=== PATIENT | female | born 1970 | race Caucasian/White ===

== ENCOUNTER 2017-07-20 07:24 | Outpatient (RCR) | payer OTHER, SELFPAY ==
--- NOTE | 2017-09-13 14:36 | HP.PTDCNRP_ITS ---
HP - Discharge Summary (1) - Patient Information CRISTINA SPRING was seen in my office for initial evaluation on 07/20/17. The following Plan of Care was established for this patient: Initial Frequency: 2x /Week Initial Duration: 4 Weeks - Anticipated Interventions Patient/Client Instruction: Educate patient on: Benefits of Fitness Program For the Purpose of:: To increase tolerance to activity/condition/position Therapeutic Exercise to Include: Strength training, Endurance training, Body mechanics, Postural training, Passive ROM, Active ROM, Scapular Strength/ Stabilization For the Purpose of:: To improve muscle performance and motor function TENS: Yes Cryotherapy (ice pack, ice massage): Yes Thermo therapy (hot pack): Yes Ultrasound (thermal/non thermal): Yes For the Purpose of:: To decrease pain This patient was last seen in our office . Pertinent comments regarding their Physical therapy will appear below: Patient has not attended physical therapy in over 4 weeks- appropriate to be d/ c at this time. At this point I will be discontinuing this patient from physical therapy. I would be happy to see this patient again in the future if found appropriate by the physician. Thank you! Jo Hutchinson
== END 2017-07-20 19:00 | disposition home or self-care (01) ==
LOC: PT 07:24
PROVIDERS: Family Provider Family Medicine; PCP Family Medicine; Visit Provider Physician Assistant
DX: S16.1XXD Strain of muscle, fascia and tendon at neck level, subsequent encounter (principal); S46.819D Strain of other muscles, fascia and tendons at shoulder and upper arm level, unspecified arm, subsequent encounter; S29.011D Strain of muscle and tendon of front wall of thorax, subsequent encounter
CPT/HCPCS: 97014; 97162; G0283

== ENCOUNTER → 2017-07-23 17:50 | Outpatient (CLI) | payer OTHER, SELFPAY ==
[2017-07-23 17:52] LABS: Bacteria 0 SEEN /hpf (None Seen); Mucous, Urine 0 SEEN /hpf (<or=2+); White Blood Cells 0 SEEN /hpf (0-5)
[2017-07-23 18:27] LABS: Color, Urine Amber (Yellow); Glucose, Dipstick Normal (Normal); Ketone-Dipstick 5 mg/dl (Negative); Leukocyte Esterase-Dipstick 500 /ul (Negative); Nitrite-Dipstick Negative (Negative); Occult Blood-Urine 250 /ul (Negative); Protein-Dipstick 30 mg/dl (Negative); Specific Gravity, Urine 1.015 (1.002-1.030); Urine Bilirubin Dipstick Negative (Negative); Urine Clarity Cloudy (Clear); Urine Urobilinogen Normal (Normal); Urine pH 6.5 (5.0 - 8.0)
[2017-07-23 19:06] LABS: Red Blood Cells-Urine > 100 SEEN /hpf (0-5); Squamous Epithelial Cells - UA > 100 SEEN /hpf (5-10)
== END ==
PROVIDERS: Family Provider Family Medicine; PCP Family Medicine; Visit Provider Physician Assistant Surgical
DX: N30.01 Acute cystitis with hematuria (principal)
CPT/HCPCS: 81001; 87086; 87088

== ENCOUNTER → 2017-08-12 12:29 | Outpatient (CLI) | payer OTHER, SELFPAY ==
--- NOTE | 2017-08-12 12:32 | CT_ITS ---
STUDY: CT SOFT TISSUE NECK WITH CONTRAST REASON FOR EXAM: Female, 47 years old. Left-sided neck mass. RADIATION DOSAGE (If Supplied By Facility): CTDIvol = ( 22.58 ) mGy, DLP = ( 671.13 ) mGycm TECHNIQUE: The patient was scanned in a multi-detector CT scanner. High resolution transaxial imaging was performed following intravenous administration of 75 ml of Isovue 300 contrast material. Sagittal and coronal images were reconstructed. Individualized dose optimization techniques were used for this CT. COMPARISON: Comparison is made with prior examination dated July 22, 2009. FINDINGS: Normal bilateral parotid glands. Normal bilateral nitroglycerin separator operator spaces. Normal bilateral parapharyngeal spaces. Normal bilateral carotid spaces. Normal bilateral sublingual and submandibular glands and spaces. Normal visualized nasopharynx. Normal retropharyngeal space. Normal perivertebral space. Normal visualized bilateral faucial tonsils. The visualized tongue, tongue base and oropharynx are normal. The visualized cervical lymph nodes (levels I-) are within normal size limits, and maintain normal morphology. There is no demonstrated solid or cystic mass lesion. There is no abnormal contrast enhancement. Normal epiglottis, bilateral vallecula and hypopharynx. The pre-epiglottic and paraglottic adipose spaces are normal. Normal visualized bilateral piriform sinuses, aryepiglottic folds, vocal cords, and arytenoid-cricoid articulations. Normal subglottic trachea. Stable appearance of the mildly enlarged thyroid with small hypodense nodules within it. Normal visualized pulmonary apices. Normal visualized paranasal sinuses. Normal visualized cervical spine. CT/Soft Tissue Neck WITH Contrast IMPRESSION: Mildly enlarged thyroid gland with hypodense nodules within. Electronically Signed: Gunnar Morrissey MD at 15:39 EST Tel [phone], Service support ,
== END ==
PROVIDERS: Family Provider Family Medicine; PCP Family Medicine; Visit Provider Family Medicine
DX: R22.1 Localized swelling, mass and lump, neck (principal)
CPT/HCPCS: 70491; Q9967

== ENCOUNTER 2017-10-29 11:00 | Outpatient (RCR) | payer OTHER, SELFPAY ==
--- NOTE | 2017-10-25 13:39 | HP.OTEVAL_ITS ---
Patient's Visit Information CRISTINA SPRING is a 47 year old F, referred to Occupational Therapy by SASHA KELLEY CNP, with a diagnosis of right wrist pain acute. 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 pt would like her pain to decrease so she can return to PLOF. - Pain right wrist 0 Pain Intensity Range: 5, 8 - ROM Wrist: right 60/40 left 70/70 - Strength Computer Numerical Control Programmer: right 35# left 75# Lateral Pinch: right 4# left 12# Tripod Pinch: right 8# left 14# - Sensation Sensation Comments: pt gets positive nerve symptoms with palpation in forearm - Special Tests Median Nerve Compression Test: right forearm positive WHAT Test: negative - DASH-Disabilities of Arm, Shoulder& Hand DASH Sum: 76 - Goals Goal:: pt will demo a increase in right machine stoppage frequency checker strength to 70# or greater to increase ind. with BADls and IADLS by D/C Goal:: pt will demo a increase in total wrist ROM by 20 degress to increase pt ind. with BADLS and IADLS by D/C Goal:: pt will report right wrist pain no greater than 1/10 with use of left hand with BADLs and IADLs by d/c - Rehabilitation General Assessment: pt demo with very painful flexor tensons and symptoms of tingling/numbness increase with palpation of flexors- pt is limited with her functional ROM and strength- pain is also limiting her ind. with BADLs and IADLs. pt would benefit from skilled OT services. Rehabilitation Potential: Good - Anticipated Interventions Anticipated Interventions: A/AAROM/PROM, Triggerpoint Release, Modalities, Orthoses, Ergonomic Education - Visit Plan Frequency: 2-3x /Week Duration: 4 Weeks TEXT: Thank you for the opportunity to evaluate your patient. For Medicare and Medicare HMO plans, please review the plan of care and approve it. It will need to be FAXED BACK to us at [phone] for Medicare purposes. Please let me know if there are questions or concerns regarding this plan of care. Physician Signature: Date:
--- NOTE | 2018-01-31 15:49 | HP.OT.NRP ---
HP - Discharge Summary - Patient Information CRISTINA SPRING was seen in my office for initial evaluation on 10/12/17. The following Plan of Care was established for this patient: Initial Frequency: 2-3x /Week Initial Duration: 4 Weeks Plan: Tape - Anticipated Interventions Anticipated Interventions: A/AAROM/PROM, Triggerpoint Release, Modalities, Orthoses, Ergonomic Education This patient was last seen in our office 10/29/17. Pertinent comments regarding their Occupational therapy will appear below: Pt was progressing but noted the ability to increase CTS with compression to bilateral foreams. pt continues to have wrist pain. pt last seen on 10-29-17. due to laps in tx time pt d/c at this time. At this point I will be discontinuing this patient from occupational therapy. I would be happy to see this patient again in the future if found appropriate by the physician. Thank you! Nancy Borges, OTR/L, CHT
== END 2017-10-29 19:00 | disposition home or self-care (01) ==
LOC: OT 11:00
PROVIDERS: Family Provider Family Medicine; PCP Family Medicine
DX: M25.531 Pain in right wrist (principal)
CPT/HCPCS: 97035; 97140; 97166; 97530

== ENCOUNTER → 2018-01-10 09:47 | Outpatient (CLI) | payer OTHER, SELFPAY ==
--- NOTE | 2018-01-10 09:48 | RAD_ITS ---
STUDY: X-RAY - LEFT KNEE REASON FOR EXAM: Female, 47 years old. knee pain x one year after hyperextending TECHNIQUE: 4 view(s) of the knee. COMPARISON: None. FINDINGS: Normal visualized distal femur. Normal visualized proximal tibia and fibula. Normal proximal tibiofibular articulation. Normal medial femorotibial compartment. Normal lateral femorotibial compartment. Normal patellofemoral articulation. The soft tissue structures are unremarkable. RAD/Knee 4 or More Views IMPRESSION: Normal x-ray examination of the knee. Electronically Signed: Sasha Carter MD at 11:02 EDT , Service support ,
== END ==
PROVIDERS: Family Provider Family Medicine; PCP Family Medicine; Visit Provider Physician Assistant
DX: M25.562 Pain in left knee (principal)
CPT/HCPCS: 73564

== ENCOUNTER → 2018-01-24 10:06 | Outpatient (CLI) | payer OTHER, SELFPAY | PROVIDERS: Family Provider Family Medicine; PCP Family Medicine; Visit Provider Physician Assistant | DX: S83.282A Other tear of lateral meniscus, current injury, left knee, initial encounter (principal); X58.XXXA Exposure to other specified factors, initial encounter; Y93.9 Activity, unspecified; Y92.9 Unspecified place or not applicable; Y99.9 Unspecified external cause status | CPT/HCPCS: 73721 ==

== ENCOUNTER → 2018-03-14 09:10 | Outpatient (CLI) | payer OTHER, SELFPAY ==
--- NOTE | 2018-03-14 09:12 | CT_ITS ---
STUDY: CT ABDOMEN AND PELVIS WITH AND WITHOUT CONTRAST REASON FOR EXAM: Female, 47 years old. Microscopic hematuria for 2 months. RADIATION DOSAGE (If Supplied By Facility): CTDIvol = ( 19.44 ) mGy, DLP = ( 1769.36 ) mGycm TECHNIQUE: Transaxial images were obtained from the dome of the diaphragm to the symphysis pubis without oral contrast. 100 ml of Isovue 300 contrast was administered. Sagittal and coronal images were reconstructed. Individualized dose optimization techniques were used for this CT. COMPARISON: Prior comparable comparison studies are not available for review at this time. FINDINGS: The visualized lung bases are unremarkable. The visualized portions of the heart are within normal limits. There is hepatomegaly with diffuse hepatic enlargement. Maximum cephalocaudal dimension of the liver is approximately 25.3 cm. Normal gallbladder and extrahepatic biliary system. There is a cystic lesion within the anterior aspect of the spleen measuring approximately 2.7 x 2.1 x 2 cm in size. There are some associated calcifications adjacent to the capsule of this lesion. The spleen otherwise has a normal appearance. C7 splenic hilum. Normal pancreas. Normal bilateral adrenal glands. Normal right kidney. Normal left kidney. Normal visualized stomach. There is no evidence for dilated bowel, ascites or pneumoperitoneum. The small bowel has a grossly normal appearance. The descending colon is nondistended which gives the appearance of thickened combs. Stool is visible within the right colon and transverse colon. The appendix is visualized and appears normal. Abdominal aorta is slightly tortuous with minimal atherosclerotic calcification. Normal inferior vena cava. Normal retroperitoneum. Normal urinary bladder. Normal visualized uterus. There is diastases recti. Normal osseous structures. CT/CT Abd/Pelvis W/WO Contrast IMPRESSION: 1. Hepatomegaly. 2. Splenic cystic lesion. 3. Varices are present suggesting some component of portal hypertension. Electronically Signed: Hannah Abreu MD at 12:18 EDT , Service support ,
== END ==
PROVIDERS: Family Provider Family Medicine; PCP Family Medicine; Referring Provider Urology; Visit Provider Urology
DX: R31.9 Hematuria, unspecified (principal)
CPT/HCPCS: 74178; Q9967

== ENCOUNTER → 2018-08-24 20:40 | Outpatient (CLI) | payer OTHER, SELFPAY | PROVIDERS: Family Provider Family Medicine; PCP Family Medicine; Visit Provider Psychiatry & Neurology Psychiatry | DX: G47.33 Obstructive sleep apnea (adult) (pediatric) (principal) | CPT/HCPCS: 95810 ==

== ENCOUNTER → 2018-09-01 14:07 | Outpatient (CLI) | payer OTHER, SELFPAY ==
[2018-09-01 08:33] VITALS: BMI 35.5
== END ==
PROVIDERS: Family Provider Family Medicine; PCP Family Medicine; Referring Provider Nurse Practitioner Family; Visit Provider Nurse Practitioner Family
DX: R30.0 Dysuria (principal); R35.0 Frequency of micturition
CPT/HCPCS: 87086; 87088; 87186

== ENCOUNTER 2018-11-01 08:00 | Outpatient (RCR) | payer OTHER, SELFPAY ==
[2018-09-01 08:33] VITALS: BMI 35.5
--- NOTE | 2018-10-04 11:59 | HP.OTEVAL_ITS ---
Patient's Visit Information CRISTINA SPRING is a 48 year old F, referred to Occupational Therapy by Devante Linn III, MD, with a diagnosis of bilateral hand/wrist strain. Date of Evaluation: 10/03/18 Occupational Therapist: Nancy Borges, CALLIE/Wilber, CHT - Subjective Subjective: This 48 year old female arrives to OT [facility] with dx of bilateral hand/wrist strains. 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 Pt states she works two hours on wednesday, three on wed, and 4 Wednesday. Pt does not use any tools while performing her job. 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 pt is mostly elbows down on bilateral UE. - Pain bilateral hands 3 Pain Intensity Range: 3, 5 - ROM Elbow: right 0/110 left 0/120 this is pain free ROM,pt demo better ROM but painful Forearm: supination right 45 left 60 pronation Wrist: right 55/60 left 75/45 ROM Comments: pt demo all digit ROM WFL. pain with right MCPJ ROM and use - Strength Dual Rate Dealer: right 20# left 40# Lateral Pinch: right 14# left 12# Tripod Pinch: rigth 12# with pain left 14# - Edema PIP: right MF 5.7 left 5.5 - Special Tests Median Nerve Compression Test: positive - Goals Goal:: PT will demo an increase in chemical milling processor strength by 20# to increase independent with basic occupations of daily living to return pt to OF by D/C. Pt will demo an increase in lateral and tripod pinch by 2# to increase pts independent with opening baggies, containers at PLOF by D/C. Goal:: pt will demo full ROM of bilateral foream sup/pron to increase pts ind with ADLs and IADLS by d/c Goal:: pt will report with use of bilateral UE and hands for IADLs and ADls her pain will be no greater than 1/10 by d/c. - Rehabilitation General Assessment: pt presents with pain with palpation of bilateral elbows, wrist and hands- pain with resistive testing, and decreased ROM of elbow, forearms and wrist. THe above limit pts with functional use of bilateral hands for home mtg and job tasks. pt would benefit from skilled OT services2-3x week for 4 weeks to decrease pain, improve pts ROM and return pts functional strenght to return to her PLOF with ADLs, IADls and work tasks. PT demo understanding and agrees to POC Rehabilitation Potential: Good - Anticipated Interventions Anticipated Interventions: A/AAROM/PROM, Strengthening, Triggerpoint Release, Modalities, Orthoses, Joint Protection/Energy Conservation, Ergonomic Education - Visit Plan Frequency: 2-3x /Week Duration: 4 Weeks TEXT: Thank you for the opportunity to evaluate your patient. For Medicare and Medicare HMO plans, please review the plan of care and approve it. It will need to be FAXED BACK to us at [phone] for Medicare purposes. Please let me know if there are questions or concerns regarding this plan of care. Physician Signature: Date:
--- NOTE | 2019-03-08 10:34 | HP.OT.NRP ---
HP - Discharge Summary - Patient Information CRISTINA SPRING was seen in my office for initial evaluation on 10/03/18. The following Plan of Care was established for this patient: Initial Frequency: 2-3x /Week Initial Duration: 4 Weeks Plan: pt to see - Anticipated Interventions Anticipated Interventions: A/AAROM/PROM, Strengthening, Triggerpoint Release, Modalities, Orthoses, Joint Protection/Energy Conservation, Ergonomic Education This patient was last seen in our office 11/01/18. Pertinent comments regarding their Occupational therapy will appear below: Pt was seen for 8 visits in OT. therapist ed. pt on work ergo, median nerve glides, trigger point release and use of k-tape. pts symptoms cont. to come and go with no improved results- therapist rec'd pt to return to due to limited progress. pt d/c at this time. At this point I will be discontinuing this patient from occupational therapy. I would be happy to see this patient again in the future if found appropriate by the physician. Thank you! Nancy Borges, OTR/L, CHT
== END 2018-11-01 19:00 | disposition home or self-care (01) ==
LOC: OT 08:00
PROVIDERS: Family Provider Family Medicine; PCP Family Medicine; Referring Provider Family Medicine; Visit Provider Family Medicine
DX: S66.91 Strain of unspecified muscle, fascia and tendon at wrist and hand level (principal)
CPT/HCPCS: 97035; 97110; 97140; 97166; 97530

== ENCOUNTER 2019-10-17 10:00 | Outpatient (RCR) | payer OTHER, SELFPAY ==
[2018-10-13 08:18] VITALS: BMI 37.4
--- NOTE | 2019-09-26 12:54 | HP.PTEVAL_ITS ---
Patient's Visit Information CRISTINA SPRING is a 49 year old F referred to Physical Therapy by Devante Linn III, MD with a diagnosis of R sided throacic pain. Date of Evaluation: 09/26/19 Physical Therapist: Solo David DPT - Visit Plan Frequency: 2x /Week Duration: 4-6 Weeks Plan: Start with US to R side of T6-T9 (paraspinal region), PA pressure III/IV as tolerated. Seated trunk extension of thoracic spine--> to over pressures. - Subjective Subjective: Pt. is here today for her initial evaluation with diagnosis of R sided thoracic pain. 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 No mech of injury. Pt. thinks that she just woke up with the symtoms. Pt. has had this before, knocked out with flexir and prednisone. No weakness noted. No N/T. Increases symptoms: deep breathing, getting up out of bed, twisting, and getting up to standing, bend and lifting. Decreases symptoms: heat, advil. Mild relief. Pt. is hopeful to reduce symptoms in order to get back to work and recreational activities without limiations. - Pain R side of thoracic spine Pain Intensity (Out of 10): 3 Pain Intensity Range: 3, 7 - Objective POSTURE: Pt. has slight increased in thoracic kyphosis and rounded shoulders. Pt. is able to correct without issues. PALPATION: Pt. is very tender at T6-T9 on right side. Pt. has hypomobility througout transerve process and ribs in this region, R sided only. Hypombility noted with spring testing to spinous process as well. NEURO: normal throughout UE/LEs, normal sensation. ROM: Lumbar spine: flexion min loss increase NW, extnsion nil loss NE, rotaton min loss bilat increase NW. Thoracic spine: flexion min loss NE, extension min/mod loss increase NW, rotation R mod/max loss increase NW, rotation L min loss mild increase NW. MMT: normal throughout UE/LEs. GAIT: PT. has normal gait pattern no issues. - Special Tests Thoracic Sitting: Flexion - Mechanical Response: No effect Thoracic Sitting: Flexion - Symptoms During Testing: Increases Thoracic Sitting: Flexion - Symptoms After Testing: No worse Thoracic Sitting: Extension - Mechanical Response: No effect Thoracic Sitting: Extension - Symptoms During Testing: Increases Thoracic Sitting: Extension - Symptoms After Testing: No worse Comments:: limited motion Thoracic Sitting: Right rotation - Mechanical Response: No effect Thoracic Sitting: Right Rotation - Symptoms During Testing: Increases Thoracic Sitting: Right Rotation - Symptoms After Testing: No worse Comments:: Very limited ROM Thoracic Sitting: Left rotation - Mechanical Response: No effect Thoracic Sitting: Left Rotation - Symptoms During Testing: Abolishes Comments:: slight ROM loss - Goals Goal 1:: LTG: Pt. to be I with HEP. Goal Time Frame: 4-6 Weeks Goal 2:: STG: Pt. to sleep throughout the night without increase in symptoms. Goal Time Frame: 2-4 Weeks Goal 3:: STG: Pt. to get out of bed, up and down from chair without increase in symptoms. Goal Time Frame: 2-4 Weeks Goal 4:: STG: Pt. to deep breath without increase in symptoms. Goal Time Frame: 2-4 Weeks Goal 5:: LTG: Pt. to have full thoracic ROM without increase in symptoms. Goal Time Frame: 4-6 Weeks Goal 6:: LTG: Pt. to resume all work and household activities without increase in symptoms. Goal Time Frame: 4-6 Weeks - Rehabilitation Potential Physical Therapy Diagnosis: Pt. has signs and symptoms consistent with R sided thoracic pain. Pt. has no signs of shingles. Pt. has limited ROM of thoracic spine, worst with R side bending and R rotation. She also has some symptoms with deep breathing. Pt. had positive results initially with PA pressure and with self thoracic extension exercises. Pt. would benefit from PT to increase ROM and decrease symptoms. Rehabilitation Potential: Excellent - Anticipated Interventions Patient/Client Instruction: Educate patient on: Condition, Plan of Care, Risk Factors, Benefits of Fitness Program For the Purpose of:: To foster healthy habits, To improve decision making, To facilitate caregiver knowledge, To improve self management, To prevent re- injury, To improve ability to perform tasks related to life management, To improve tolerance to ADL's Therapeutic Exercise to Include: Strength training, Power training, Postural training, Flexibilty training, Passive ROM, Active ROM, Brodie Exercises, Scapular Strength/Stabilization For the Purpose of:: To decrease pain, To decrease swelling/inflammation, To increase ROM, To improve nutrient delivery to tissue, To increase oxygenation perfusion, To improve muscle performance and motor function, To improve health of tissue, To decrease soft tissue restriction, To increase flexibility/ROM Manual Therapy Techniques to Include: Mobilization, Functional dry needling, Soft tissue mobilization For the Purpose of:: To decrease pain, To decrease swelling/inflammation, To increase ROM, To improve nutrient delivery to tissue, To increase oxygenation perfusion IF ES: Yes Cryotherapy (ice pack, ice massage): Yes Thermo therapy (hot pack): Yes Ultrasound (thermal/non thermal): Yes For the Purpose of:: To decrease pain, To decrease swelling/inflammation, To in crease ROM, To improve nutrient delivery to tissue, To increase oxygenation perfusion, To improve muscle performance and motor function Thank you for the opportunity to evaluate your patient. For Medicare and Medicare HMO plans, please review the plan of care and approve it. It will need to be FAXED BACK to us at [phone] for Medicare purposes. For Medicare only, by signing this I certify the plan of care. Please let me know if there are questions or concerns regarding this plan of care. Physician Signature: D ate:
--- NOTE | 2019-10-17 10:31 | HP.PTREVAL_ITS ---
Dr. Devante Linn III, MD, It has been my pleasure to treat CRISTINA SPRING over the last 5 visits for R sided throacic pain. Please see the progress note below for an update on the physical therapy plan of care! Subjective: Pt. reports I am doing better, but I feel like I am always on the cusp of irritating it.' Pt. reports being HEP complaint. Objective/Function: Pt. did well with all PT this date. ROM: THORACIC SPINE: Pt. has full motion, stretch felt with extension. Decrease in symptoms with extension. Pt. has no pain with deep breathing. Pt. felt stretch of her lats, rhomboids and mid trap. Pt.given stretches for HEP (pt. consents). I also gave her strengthening of rhomboids and mid trap for HEP. (purple band vended this date). Pt. to focus on extension postural strengthening and ROM into extension for home. Pt. consents. Plan Plan: Pt. given HEP to work on at home. Pt. desires to go this route and follow back up with Pt if needed. I will keep her case open to allow for return if needed. If she does not return with in 3-4 weeks I will DC back to physician. Goals Goal 1:: LTG: Pt. to be I with HEP. Goal Time Frame: 4-6 Weeks Goal Progress: Goal Met Goal 2:: STG: Pt. to sleep throughout the night without increase in symptoms. Goal Time Frame: 2-4 Weeks Goal Progress: Goal Met Goal 3:: STG: Pt. to get out of bed, up and down from chair without increase in symptoms. Goal Time Frame: 2-4 Weeks Goal Progress: Goal Met Goal 4:: STG: Pt. to deep breath without increase in symptoms. Goal Time Frame: 2-4 Weeks Goal Progress: Goal Met Goal 5:: LTG: Pt. to have full thoracic ROM without increase in symptoms. Goal Time Frame: 4-6 Weeks Goal Progress: Goal Met Goal 6:: LTG: Pt. to resume all work and household activities without increase in symptoms. Goal Time Frame: 4-6 Weeks Goal Progress: Progressing Anticipated Interventions Patient/Client Instruction: Educate patient on: Condition, Plan of Care, Risk Factors, Benefits of Fitness Program For the Purpose of:: To foster healthy habits, To improve decision making, To facilitate caregiver knowledge, To improve self management, To prevent re- injury, To improve ability to perform tasks related to life management, To improve tolerance to ADL's Therapeutic Exercise to Include: Strength training, Power training, Postural training, Flexibilty training, Passive ROM, Active ROM, Brodie Exercises, Scapular Strength/Stabilization For the Purpose of:: To decrease pain, To decrease swelling/inflammation, To increase ROM, To improve nutrient delivery to tissue, To increase oxygenation perfusion, To improve muscle performance and motor function, To improve health of tissue, To decrease soft tissue restriction, To increase flexibility/ROM Manual Therapy Techniques to Include: Mobilization, Functional dry needling, Soft tissue mobilization For the Purpose of:: To decrease pain, To decrease swelling/inflammation, To increase ROM, To improve nutrient delivery to tissue, To increase oxygenation perfusion IF ES: Yes Cryotherapy (ice pack, ice massage): Yes Thermo therapy (hot pack): Yes Ultrasound (thermal/non thermal): Yes For the Purpose of:: To decrease pain, To decrease swelling/inflammation, To increase ROM, To improve nutrient delivery to tissue, To increase oxygenation perfusion, To improve muscle performance and motor function Please do not hesitate to contact me at [phone] by phone or if you have questions or concerns regarding this new plan of care! Sincerely, Solo David DPT
--- NOTE | 2020-03-25 07:47 | HP.PTDCNRP_ITS ---
CRISTINA SPRING was seen in my office for initial evaluation on 09/26/19. The following Plan of Care was established for this patient: Initial Frequency: 2x /Week Initial Duration: 4-6 Weeks Patient/Client Instruction: Educate patient on: Condition, Plan of Care, Risk Factors, Benefits of Fitness Program For the Purpose of:: To foster healthy habits, To improve decision making, To facilitate caregiver knowledge, To improve self management, To prevent re- injury, To improve ability to perform tasks related to life management, To improve tolerance to ADL's Therapeutic Exercise to Include: Strength training, Power training, Postural training, Flexibilty training, Passive ROM, Active ROM, Brodie Exercises, Scapular Strength/Stabilization For the Purpose of:: To decrease pain, To decrease swelling/inflammation, To increase ROM, To improve nutrient delivery to tissue, To increase oxygenation perfusion, To improve muscle performance and motor function, To improve health of tissue, To decrease soft tissue restriction, To increase flexibility/ROM Manual Therapy Techniques to Include: Mobilization, Functional dry needling, Soft tissue mobilization For the Purpose of:: To decrease pain, To decrease swelling/inflammation, To increase ROM, To improve nutrient delivery to tissue, To increase oxygenation perfusion IF ES: Yes Cryotherapy (ice pack, ice massage): Yes Thermo therapy (hot pack): Yes Ultrasound (thermal/non thermal): Yes For the Purpose of:: To decrease pain, To decrease swelling/inflammation, To increase ROM, To improve nutrient delivery to tissue, To increase oxygenation perfusion, To improve muscle performance and motor function This patient was last seen in our office 10/17/19. Pertinent comments regarding their Physical therapy will appear below: Pt. was seen in PT for her R sided thoracic pain. Pt. at our last visit was doing much better and was to trial exercsies on her own. Pt. has not been seen in several months and will be DC from PT at this point in time. At this point I will be discontinuing this patient from physical therapy. I would be happy to see this patient again in the future if found appropriate by the physician. Thank you! Solo David, SHASTAT
== END 2019-10-17 19:00 | disposition home or self-care (01) ==
LOC: PT 10:00
PROVIDERS: PCP Family Medicine; Referring Provider Family Medicine; Visit Provider Family Medicine
DX: R07.89 Other chest pain (principal)
CPT/HCPCS: 97035; 97110; 97161; 97164

== ENCOUNTER → 2020-04-30 | Outpatient (CLI) | payer OTHER, SELFPAY ==
[2019-10-04 10:35] VITALS: BMI 37.4
[2020-04-30 10:17] LABS: Lipase 95 U/L (73-393)
== END | disposition home or self-care (01) ==
LOC: LABSPEC 10:04
PROVIDERS: PCP Family Medicine; Referring Provider Physician Assistant; Visit Provider Physician Assistant
DX: R10.11 Right upper quadrant pain (principal)
CPT/HCPCS: 83690

== ENCOUNTER 2020-11-07 08:30 | Outpatient (RCR) | payer OTHER, SELFPAY ==
[2019-10-04 10:35] VITALS: BMI 37.4
--- NOTE | 2020-09-27 11:19 | HP.OTEVAL_ITS ---
Patient's Visit Information CRISTINA SPRING is a 50 year old F, referred to Occupational Therapy by DAVIDE LEO, with a diagnosis of right CTS. Date of Evaluation: 09/27/20 Occupational Therapist: Nancy Borges, OTR/Wilber, CHT - Subjective This 50 year old female was seen for OT eval with dx of CTS- pt suffered with symptoms for over 5 years. Pt had sx was on 07/10/20 for right CTR. pt states since sx she has had increase soreness over incission and this limits her ind. with ADls and IADLs. - Pain right hand 0 Pain Intensity Range: 0, 3 - ROM Wrist: right 70/50 left 65/65 - Strength Buffing Wheel Inspector: right 50# left 70# Lateral Pinch: right 10# left 10# Tripod Pinch: right 8# left 12# - Sensation Sensation Comments: states went away after sx - Quick DASH-Disab of Arm,Shoulder& Hand Quick DASH Score: 17.8550 - Goals Goal:: pt will demo a increase in right presser hand strength by 10# or greater by d/c to increase pts ind. with ADLs and IADLs. Goal:: pt will report pain no greater than 1/10 with use of right hand with ADLS and IADLs by d/c Goal:: pt will demo understanding of scar mtg by end of 3rd visit to decrease scar mtg. - Rehabilitation General Assessment: pt is currrently 2 month s/p right CTR and has pain with use and demo with a hypertrophic scar. this limits pts ind.with ADLS and IADls. pt would benefit from skilled OT services 1-2x week for 4 weeks to decraese pain and increase use of right hand with ADLS and IADL. Today therapist ed. pt on scar mtg - pt demo understanding and agree to POC. Rehabilitation Potential: Good - Anticipated Interventions Strengthening, Scar Care, Triggerpoint Release, Desensitization, Modalities, Joint Protection/Energy Conservation, Ergonomic Education - Visit Plan Frequency: 1-2x /Week Duration: 4 Weeks TEXT: Thank you for the opportunity to evaluate your patient. For Medicare and Medicare HMO plans, please review the plan of care and approve it. It will need to be FAXED BACK to us at [phone] for Medicare purposes. Please let me know if there are questions or concerns regarding this plan of care. Physician Signature: Date:
--- NOTE | 2020-11-07 10:47 | HP.OTDCSUM ---
It has been my pleasure to treat CRISTINA SPRING under orders from DAVIDE LEO, for the diagnosis of right CTS for a total of 10 visit(s). Please see the following information for a summary of their discharge status. % Improvement: 95 Objective/Function: pt demo ROM WNL and return of visual basic programmer strength- pt reports she has returned to 95% of her PLOF. Goal:: pt will demo a increase in right visual basic programmer strength by 10# or greater by d/c to increase pts ind. with ADLs and IADLs. Goal:: pt will report pain no greater than 1/10 with use of right hand with ADLS and IADLs by d/c Goal:: pt will demo understanding of scar mtg by end of 3rd visit to decrease scar mtg. Plan: D/C Discharge Comments: pt was seen for 10 OT visits following a CTR- pt demo with sensitive scar and scar thickness increasing pain and limiting use of hand- pt now states she has returned to her PLOF 95% of the time with her ADLs and IADS. Pt has met OT goals and is d/c- therapist red'd pt cont with scar mtg for next 3 months pt demo understanding and agree to POC. If there are questions or concerns regarding this patient's occupational therapy, please fell free to call me at [phone]. Thank you for the referral of this patient. Sincerely, Nancy Borges, OTR/L, CHT
== END 2020-11-07 19:00 | disposition home or self-care (01) ==
LOC: OT 08:30
PROVIDERS: PCP Family Medicine
DX: G56.01 Carpal tunnel syndrome, right upper limb (principal)
CPT/HCPCS: 97035; 97140; 97165; 97166

== ENCOUNTER 2021-01-31 11:30 | Outpatient (RCR) | payer OTHER, SELFPAY ==
[2019-10-04 10:35] VITALS: BMI 37.4
--- NOTE | 2020-11-29 12:46 | HP.PTEVAL ---
Patient's Visit Information CRISTINA SPRING is a 50 year old F referred to Physical Therapy by VALENTINA Downs with a diagnosis of LOW BACK, HIP AND NECK PAIN.. Date of Evaluation: 11/29/20 Physical Therapist: Esperanza Coombs, PT, Cert MDT - Visit Plan Frequency: 2-3x /Week Duration: 4-6 Weeks Plan: LOW BACK/HIP US, IF-ESTIM WITH MH, POSTURE CORRECTION/STRENGTHENING, INSTRUCTION IN APPROPRIATE BODY MECHANICS AND ACTIVITY MODIFICATIONS. DLS STARTING WITH A NEUTRAL SPINE PROGRESSING ROM TOLERATED. KYLE LE ROM, STRETCHING AND STRENGTHENING. HEP INSTRUCTION. - Subjective Work/Leisure: [employer] ABOUT 16 HOURS A WEEK. 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 Disability: NO. Present symptoms: KYLE LOW BACK PAIN R > L. KYLE HIP AND BUTTOCK PAIN. KYLE THIGH PAIN. Present since: YEARS. ABOUT A MONTH AGO EXACERBATED LBP. Pain Scale: WORST 6/10, LEAST 4/10. Currently: 4/10. Commenced as a result of: ORIGINALLY NO APPARENT REASON. ABOUT A MONTH AGO MIS-JUDGED THE STEP COMING OUT OF TRUCK AND JAMMED BACK UP TO NECK. Symptoms at onset: LOW BACK. Worse: TRYING TO SLEEP, WORSE IN THE MORNING, BENDING, LIFTING, TWISTING, PROLONGED SITTING. Better: ON THE MOVE. IBUPROFEN. HEAT. STRETCHING - SEATED BENDING AND STANDING FLEX AND KYLE SB'ING. Disturbed sleep: YES. Previous history/Previous treatment: INCREASED BACK PAIN ABOUT 4-6 MONTHS AGO JUST THROWING A PILLOW. 6-8 WEEKS AGO ALSO INCRASED BACK PAIN THROWING CURTAINS OPEN WITH BOTH ARMS AT THE SAME TIME. NO BACK SURGERY. NO KHANH'S. NO PT. H/O CHIROPRACTIC VISITS BUT VERY LITTLE BECAUSE IT HURT. Treatment this episode: PT CONSULT. Coughing/sneezing/straining: POSITIVE. Gait: 2 NEUROMAS IN R FOOT AND TORN MENISCUS R KNEE. TIME, PACE AND DISTANCE LIMITED BY BACK PAIN TOO. NO ASSISTIVE DEVICES. Difficulty initiating urinatin: NO. Accidents: NO. Unexplained weight loss: NO. Imaging: RECENT LUMBAR X-RAYS AT [facility] - PATIENT REPORTS THEY TOLD HER THAT SHE HAS ARTHRITIS IN NECK AND BACK AND STENOSIS IN LOW BACK. PMH: ENLARGED LIVER, HYPOTHYROIDISM, ANXIETY, UTI'S. OTHER: ALSO HAVING RIB AND NECK PAIN SINCE EXACERBATION A MONTH AGO STEPPING OUT OF TRUCK. PLOF: WALKING DOGS A COUNTRY MILE 1-2 TIMES A DAY PRIOR TO STEPPING OUT OF TRUCK WRONG AND NOW CAN'T EVEN GET A HALF MILE. OTHER: PATIENT REPORTS HER LOW BACK IS THE WORST. SHE REPORTS SHE IS MOSTLY OK WITH HER NECK EXCEPT AT WORK AT [employer] WHICH ISN'T NEW SINCE STEPPING OUT OF THE TRUCK. PATIENT AND THIS PT DECIDED TO START WITH EVAL OF LOW BACK TODAY. - Objective Sitting/Standing Posture: POOR. Lordosis: NORMAL. Lateral shift: NO. Relevant shift: N/A. Active Correction of posture: BETTER. Other Observations: INDEP GAIT AND TRANSFERS. Motor deficit: Sensory deficit: ROM deficit: Reflexes: Dural Signs: Lumbar mvmt loss: flex - MOD. ext - MOD. R SG - MOD. L SG - MOD. Core strength: POOR. Palpation: TENDERNESS WITH PALPATION OF THE RIGHT LOW BACK REGION. TREATMENT: NEUROMUSCULAR REEDUCATION - RETRAINING OF MVMT AND POSTURE FOR SITTING, LYING AND STANDING ACTIVITIES. - Goals Goal 1:: DECREASE C/O LOW BACK AND LE PAIN Goal Time Frame: 4-6 Weeks Goal 2:: IMPROVE LIFTING, WALKING, SITTING, STANDING, SOCIAL LIFE, TRAVEL AND WORK/HOMEMAKING FUNCTION Goal Time Frame: 4-6 Weeks Goal 3:: INSTRUCT IN PROPHYLAXIS Goal Time Frame: 4-6 Weeks - Anticipated Interventions Patient/Client Instruction: Educate patient on: Condition, Plan of Care, Risk Factors For the Purpose of:: To improve self management Therapeutic Exercise to Include: Strength training, Body mechanics, Postural training, Flexibilty training, Gait and locomotor training, Neuromotor development, In an aquatic setting, Dynamic Lumbar Stabilization Comment: DISCUSSED THE POSSIBLE BENEFITS OF AQUATIC THERAPY AND PATIENT WILL CONSIDER IN THE FUTURE NEEDED. For the Purpose of:: To decrease pain, To improve muscle performance and motor function, To increase tolerance to activity/condition/position, To improve ability of physical actions for home/community/work/leisure, To improve gait and locomotor functions TENS: Yes IF ES: Yes Cryotherapy (ice pack, ice massage): Yes Thermo therapy (hot pack): Yes Ultrasound (thermal/non thermal): Yes For the Purpose of:: To decrease pain, To decrease swelling/inflammation, To improve nutrient delivery to tissue Thank you for the opportunity to evaluate your patient. For Medicare and Medicare HMO plans, please review the plan of care and approve it. It will need to be FAXED BACK to us at [phone] for Medicare purposes. For Medicare only, by signing this I certify the plan of care. Please let me know if there are questions or concerns regarding this plan of care. Physician Signature: Date:
--- NOTE | 2021-01-09 14:10 | HP.PTREVAL_ITS ---
Quynh Sneed, VALENTINA, It has been my pleasure to treat CRISTINA SPRING over the last 8 visits for LOW BACK, HIP AND NECK PAIN.. Please see the progress note below for an update on the physical therapy plan of care! Subjective: LONG I KEEP DOING THE EX'S I FEEL GOOD BUT IF I DON'T DO THEM I HURT. Present symptoms: WEAKNESS R UE. KYLE NECK PAIN. INTERMITTENT RIGHT UE NUMBNESS AND TINGLING TO FINGER TIPS. Present since: FOREVER - AT LEAST 2 YEARS. Pain Scale: Worst - 5/10 Least - 2/10. Currently: 09/14. Commenced as a result of: NO APPARENT REASON. Symptoms at onset: NECK PAIN. Worse: LYING DOWN, HOLDING PHONE ON R SHLD. PROLONGED SITTING AT COMPUTER. VACUUMING AND LOOKING DOWN TO DO THINGS LIKE SWEEPING. Better: TYLONOL. Disturbed sleep: YES. Previous history/Previous treatment: UNREMARKABLE FOR NECK. H/O RIGHT ARM GETTING JERKED BY DOG RESULTING IN WINGING SCAPULAE AND PAIN TREATED WITH PT HERE AT [facility] YEARS AGO AND PATIENT REPORTS SHE DIDN'T HAVE A FULL RECOVERY. This episode: Dizziness: YES - CHRONIC. Tinnitis: YES - CHRONIC. Nausea: NO. Shortness of Breath: NO. Difficulty Swollowing: NO. Imaging: RECENT NECK X-RAYS - PATIENT REPORTS HAVING THEM AT [facility] AND SHE THINKS THEY SHOW DDD AND ARTHRITIS. OTHER: PATIENT REPORTS SHE IS RIGHT HANDED AND HER RIGHT HAND GETS VERY TIRED WRITING QUICKLY. Objective/Function: OT CONSULT RECOMMENDED FOR RIGHT UE SX'S - PATIENT AGREEABLE. PATIENT WAS SEEN TODAY FOR CERVICAL EVAL: Sitting Posture/Standing Posture: FH, RS'.S. Active Correction of posture: NE. Motor deficit: RIGHT HAND DOMINANT WITH A RIGHT TRUCK DOCK MATERIAL MOVER STRENGTH OF 35 LBS AND LEFT 44 LBS. LUE 5/5 WITH MMT'ING EXCEPT SHLD 4+/5. RUE: GROSSLY 4/5 EXCEPT SHLD 4-/5. Sensory deficit: KYLE UE LIGHT TOUCH SNESATION INTACT AND SYMMETRICAL WITH GROSS TESTING. ROM deficit: KYLE UE'S WFL. Reflexes: 2/3 KYLE UES. Cervical Mvmt Loss: Flex: MIN. Pro: MIN. Ext: MOD. Ret: MOD. RSB: MOD. LSB: MIN. R Rot: MOD. L Rot: MIN. PATIENT C/O POPPING AND PAIN WITH CERVICAL ROM TESTING. Postural strength: POOR. Palpation: INCREASED MUSCLE TONE KYLE CERVICAL PARASPINALS BUT NO ACUTE SPINAL TENDERNESS. Plan Plan: ADD UE AND NECK ROM/STRETCHING AND STENGTHEING TO CURRENT PLAN OF CARE. CONSIDER THE FOLLOWING EX'S: REP RET IN SITTING. REP RET IN LYING. SCAP SQUEEZES. DEEP NECK FLEXOR LIFT. PRONE W'S. UE WALL SLIDES. PRONE ROWS. UE TBAND WALL WALKS. ANTERIOR/MIDDLE SCALENE STRETCH. UPPER TRAP STRETCH. LEVATOR SCAPULAE STRETCH. CHEST/PEC MAJOR AND MINOR STRETCH. ADD ABOUT 2 NEW EX'S TO PROGRAM TOLERATED. LOW BACK/HIP US, IF-ESTIM WITH MH, POSTURE CORRECTION/STRENGTHENING, INSTRUCTION IN APPROPRIATE BODY MECHANICS AND ACTIVITY MODIFICATIONS. DLS STARTING WITH A NEUTRAL SPINE PROGRESSING ROM TOLERATED. KYLE LE ROM, STRETCHING AND STRENGTHENING. HEP INSTRUCTION. Balance/Gait/Functional tests - Balance/Special Test Scores Oswestry Low Back Score: 13 Goals Goal 1:: DECREASE C/O LOW BACK AND LE PAIN Goal Time Frame: 4-6 Weeks Goal 2:: IMPROVE LIFTING, WALKING, SITTING, STANDING, SOCIAL LIFE, TRAVEL AND WORK/HOMEMAKING FUNCTION Goal Time Frame: 4-6 Weeks Goal 3:: INSTRUCT IN PROPHYLAXIS Goal Time Frame: 4-6 Weeks Anticipated Interventions Patient/Client Instruction: Educate patient on: Condition, Plan of Care, Risk Factors For the Purpose of:: To improve self management Therapeutic Exercise to Include: Strength training, Body mechanics, Postural training, Flexibilty training, Gait and locomotor training, Neuromotor development, In an aquatic setting, Dynamic Lumbar Stabilization Comment: DISCUSSED THE POSSIBLE BENEFITS OF AQUATIC THERAPY AND PATIENT WILL CONSIDER IN THE FUTURE NEEDED. For the Purpose of:: To decrease pain, To improve muscle performance and motor function, To increase tolerance to activity/condition/position, To improve ability of physical actions for home/community/work/leisure, To improve gait and locomotor functions TENS: Yes IF ES: Yes Cryotherapy (ice pack, ice massage): Yes Thermo therapy (hot pack): Yes Ultrasound (thermal/non thermal): Yes For the Purpose of:: To decrease pain, To decrease swelling/inflammation, To improve nutrient delivery to tissue Please do not hesitate to contact me at [phone] by phone or if you have questions or concerns regarding this new plan of care! Sincerely, Esperanza Coombs, PT, Cert MDT
--- NOTE | 2021-04-15 13:27 | HP.PTDCSUM ---
It has been my pleasure to treat CRISTINA SPRING referred by VALENTINA Downs, with the diagnosis of LOW BACK, HIP AND NECK PAIN. for a total of 13 visit(s). Discharge Date: 01/31/21 Please see the following information for a summary of their discharge status. Subjective: PATIENT REPORTS HER HEP IS GOING WELL AND SHE FEELS READY TO CONTINUE ON HER OWN AT THIS POINT. LOW BACK PAIN Pain Intensity (Out of 10): 0 RIGHT LE Pain Intensity (Out of 10): 0 LEFT LE Pain Intensity (Out of 10): 0 NECK Pain Intensity (Out of 10): 0 RIGHT UE Pain Intensity (Out of 10): 0 RIGHT FOOT Pain Intensity (Out of 10): 2 % Improvement: 90 Objective/Function: ALL GOALS MET. PATIENT IS INDEP WITH A HEP AND AGREEABLE TO D/C. Goal 1:: DECREASE C/O LOW BACK AND LE PAIN Goal Progress: Goal Met Goal 2:: IMPROVE LIFTING, WALKING, SITTING, STANDING, SOCIAL LIFE, TRAVEL AND WORK/HOMEMAKING FUNCTION Goal Progress: Goal Met Goal 3:: INSTRUCT IN PROPHYLAXIS Goal Progress: Goal Met Plan: D/C If there are questions or concerns regarding this patient's physical therapy, please feel free to call me at [phone]. Thank you for the referral of this patient. Sincerely, Esperanza Coombs, PT, Cert MDT Balance/Gait/Functional tests - Balance/Special Test Scores Oswestry Low Back Score: 7 Oswestry Neck Score: 2
== END 2021-01-31 19:00 | disposition home or self-care (01) ==
LOC: PT 11:30
PROVIDERS: PCP Registered Nurse; Referring Provider Registered Nurse; Visit Provider Registered Nurse
DX: M54.41 Lumbago with sciatica, right side (principal); G89.29 Other chronic pain; M54.2 Cervicalgia
CPT/HCPCS: 97014; 97035; 97110; 97112; 97140; 97162; 97164; 97530; G0283

== ENCOUNTER → 2021-03-11 10:35 | Outpatient (CLI) | payer OTHER, SELFPAY | PROVIDERS: PCP Registered Nurse; Referring Provider Urology; Visit Provider Urology | DX: N39.0 Urinary tract infection, site not specified (principal) | CPT/HCPCS: 87086; 87088 ==

== ENCOUNTER 2021-06-03 13:00 | Outpatient (RCR) | payer OTHER, SELFPAY ==
--- NOTE | 2021-04-17 16:30 | HP.OTEVAL_ITS ---
Patient's Visit Information CRISTINA SPRING is a 51 year old F, referred to Occupational Therapy by Dr. Jose Manuel Elias MD, with a diagnosis of right lateral epi. Date of Evaluation: 04/17/21 Occupational Therapist: Nancy Borges, OTR/L, CHT - Subjective This 51 year old female was seen for OT eval with dx. of right lateral epi. states pain started about 10 weeks ago when she was lifting a pot of water. pt states she did ice her elbow after but this did not make her feel better. 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 - ADLs Kitchen: Chop with knife, Peel fruits & vegetables, Open bottle caps, Pour from pitcher, Lift saucepan, Take dish out of oven Household: Vacuum, Sweep/mop, Laundry - Pain right elbow 4 Pain Intensity Range: 7 - ROM ROM Comments: pt demo ROM WNL - Strength Disease Case Manager: right 20# left 80# Lateral Pinch: right 8# left 14# Tripod Pinch: right 8# left 14# Strength Comments: elbow straight left 55# right 10# - Sensation Sensation Comments: denies - Special Tests Lat Epiconylitis - as named: positive - Quick DASH-Disab of Arm,Shoulder& Hand Quick DASH Score: 26.6650 - Goals Goal:: pt demo a increase in right diamond powder technician strength by 10# to increase pts ind, with ADls and IADls by d/c Goal:: pt will report no pain greater than 1/10 with use of right UE with ADLs and IADls by d/c Goal:: pt will demo understanding of work ergo. of protective lat. epi . to prevent tendon stress with use of right UE with ADls and IADls by d.c - Rehabilitation General Assessment: pt demo with positive lateral eip symptoms. pt demo weakness and pain with resistive grasp- pt limited with performing ADLS and IADLS. pt would benefit from skilled OT services 2-3x week for 6 weeks to return pt to PLOF. Rehabilitation Potential: Good - Anticipated Interventions A/AAROM/PROM, Strengthening, Triggerpoint Release, Modalities, Orthoses, Joint Protection/Energy Conservation, Ergonomic Education, Education re assistive Equipment, Education re Diagnosis, Home Program - Visit Plan Frequency: 2-3x /Week Duration: 6 Weeks TEXT: Thank you for the opportunity to evaluate your patient. For Medicare and Medicare HMO plans, please review the plan of care and approve it. It will need to be FAXED BACK to us at [phone] for Medicare purposes. Please let me know if there are questions or concerns regarding this plan of care. Physician Signature: Date:
--- NOTE | 2021-10-16 16:08 | HP.OT.NRP ---
CRISTINA SPRING was seen in my office for initial evaluation on 04/17/21. The following Plan of Care was established for this patient: Initial Frequency: 2-3x /Week Initial Duration: 6 Weeks Plan: pt to schedule as able Anticipated Interventions: A/AAROM/PROM, Strengthening, Triggerpoint Release, Modalities, Orthoses, Joint Protection/Energy Conservation, Ergonomic Education, Education re assistive Equipment, Education re Diagnosis, Home Program This patient was last seen in our office 06/03/21. Pertinent comments regarding their Occupational therapy will appear below: Due to laps in skilled services pt is d/c at this time. At this point I will be discontinuing this patient from occupational therapy. I would be happy to see this patient again in the future if found appropriate by the physician. Thank you! Nancy Borges, OTR/L, CHT
== END 2021-06-03 19:00 | disposition home or self-care (01) ==
LOC: OT 13:00
PROVIDERS: PCP Registered Nurse; Referring Provider Family Medicine; Visit Provider Family Medicine
DX: M77.8 Other enthesopathies, not elsewhere classified (principal)
CPT/HCPCS: 97035; 97110; 97140; 97166

== ENCOUNTER → 2021-10-23 | Outpatient (CLI) | payer OTHER, SELFPAY | END | disposition home or self-care (01) | LOC: LABSPEC 10:27 | PROVIDERS: PCP Registered Nurse; Referring Provider Physician Assistant; Visit Provider Physician Assistant | DX: R30.9 Painful micturition, unspecified (principal) | CPT/HCPCS: 87086; 87088; 87186 ==

== ENCOUNTER → 2021-11-27 | Outpatient (CLI) | payer OTHER, SELFPAY ==
[2021-11-27 14:09] LABS: Mucous, Urine 0 SEEN /hpf (<or=2+)
[2021-11-27 14:21] LABS: Color, Urine Yellow (Yellow); Glucose, Dipstick Normal (Normal); Ketone-Dipstick Negative (Negative); Leukocyte Esterase-Dipstick 500 /ul (Negative); Nitrite-Dipstick Negative (Negative); Occult Blood-Urine 25 /ul (Negative); Protein-Dipstick Negative (Negative); Urine Bilirubin Dipstick Negative (Negative); Urine Clarity Sl. Cloudy (Clear); Urine Urobilinogen Normal (Normal)
[2021-11-27 14:35] LABS: Red Blood Cells-Urine 0-5 SEEN /hpf (0-5); Squamous Epithelial Cells - UA 0-5 SEEN /hpf (5-10); White Blood Cells 50-100 SEEN /hpf (0-5)
[2021-11-27 14:36] LABS: Bacteria RARE /hpf (None Seen)
== END | disposition home or self-care (01) ==
LOC: LABSPEC 12:12
PROVIDERS: PCP Registered Nurse; Visit Provider Physician Assistant Surgical
DX: N30.01 Acute cystitis with hematuria (principal)
CPT/HCPCS: 81001; 87086; 87088

== ENCOUNTER 2022-05-07 07:48 | Emergency (ER) | payer OTHER, SELFPAY ==
[2022-05-07 07:49] VITALS: BP 149/81; PULSE 91; RESP 16; TEMP 36; O2SAT 99; BMI 36.0
--- NOTE | 2022-05-07 08:10 | EDS_ITS ---
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 Denies foot drop. Denies buckling of knees going up or down steps. Denies saddle paresthesia or anesthesia.); Negative for Numbness, Radiation to Right L eg, Radiation to Left Leg, Fever, Abdominal Pain, Dysuria, Unable to Ambulate, Unable to Transfer, Urinary Retention, Urinary Incontinence, Constipation or Fecal Incontinence Narrative Narrative: Patient is a 52-year-old woman who presents with back pain that started Wednesday. She did see her primary care physician placed on prednisone and reports no improvement. On Wednesday she states she was taking ibuprofen and cyclobenzaprine breathing with no improvement. She also applied ice for the first 2 days. On the third day she began applying heat. There is no history of direct trauma. She has no history of herniated disc. Prior similar symptoms: No Recent Illness/Hospitalization: No [facility] Medical History Acute thoracic myofascial strain Home Medications dextroamphetamine-amphetamine 20 mg tablet 20 mg PO TID 12/19/15 [History Last Taken 10/08/16 07:00] levothyroxine 100 mcg tablet 125 mcg PO DAILY 12/19/15 [History Last Taken Unknown] aripiprazole 30 mg tablet 20 mg PO QHS 08/27/16 [History Last Taken Unknown] bupropion HCl 200 mg tablet,12 hr sustained-release 200 mg PO DAILY 08/27/16 [History Last Taken Unknown] citalopram 20 mg tablet 40 mg PO DAILY 10/02/16 [History Last Taken Unknown] cyclobenzaprine 10 mg tablet 10 mg PO TID PRN muscle spasm #20 tabs 11/08/21 [Rx Last Taken Unknown] estradiol 10 mcg vaginal tablet 10 mcg vaginal PRN PRN check 11/08/21 [History Last Taken Unknown] famotidine 20 mg tablet 20 mg PO DAILY 11/08/21 [History Last Taken Unknown] modafinil 200 mg tablet 200 mg PO DAILY 11/08/21 [History Last Taken Unknown] pantoprazole 40 mg tablet,delayed release 40 mg PO DAILY 11/08/21 [History Last Taken Unknown] trospium 60 mg capsule,extended release 24 hr 60 mg PO DAILY 11/08/21 [History Last Taken Unknown] phenazopyridine 100 mg tablet (Pyridium) 100 mg PO TID PRN pain 6 doses #7 tabs 11/27/21 [Rx Last Taken Unknown] cyclobenzaprine 10 mg tablet 10 mg PO TID PRN muscle spasm #30 tabs 04/20/22 [Rx Last Taken Unknown] ibuprofen 600 mg tablet 600 mg PO Q6H PRN pain #40 tabs 04/20/22 [Rx Last Taken Unknown] hydrocodone-acetaminophen 5-325mg 5mg-325mg 1 tab PO Q6H PRN PRN Pain 3 days #10 TABLETS 05/07/22 [Rx Last Taken Unknown] naproxen 500 mg tablet 500 mg PO BID #14 tabs 05/07/22 [Rx Last Taken Unknown] solriamfetol 150 mg tablet (Sunosi) 150 mg PO DAILY 05/07/22 [History Last Taken Unknown] Allergy/AdvReac Type Severity Reaction Status Date / Time cefaclor [From On License Of [facility]] Allergy Anaphylaxis Verified 05/07/22 07:51 Cephalosporins Allergy Anaphylaxis Verified 05/07/22 07:51 Penicillins [PCN] Allergy Anaphylaxis Verified 05/07/22 07:51 Sulfa (Sulfonamide Allergy Anaphylaxis Verified 05/07/22 07:51 Antibiotics) Social History (Updated 05/07/22 @ 08:[address] Edward Adair MD) household members: none Smoking Status: Former smoker alcohol intake: never substance use type: does not use ROS ROS ED Constitutional Constitutional ED: Denies chills, fever(s), subjective, sweats or weight loss Eyes Eyes: Denies blurry vision, change in vision or diplopia ENT ENT ED: Denies ear pain, rhinorrhea or sore throat Cardiovascular Cardiovascular: Denies chest pain, orthopnea, palpitations, paroxysmal nocturnal dyspnea or racing heartbeat Respiratory/Chest Respiratory/Chest: Denies dyspnea, dyspnea on exertion, orthopnea or paroxysmal nocturnal dyspnea Gastrointestinal Gastrointestinal: Denies abdominal pain, constipation, nausea or vomiting Genitourinary Genitourinary ED: Denies dysuria, hematuria or urinary frequency Musculoskeletal Musculoskeletal: Reports back pain and other Details: Documented in the HPI ; Denies arthralgias, myalgias or neck pain Integumentary Denies Abrasions or rash Neurologic Neurologic: Denies paresthesias or weakness Hematologic/Lymphatic Hematologic/Lymphatic: Denies easy bleeding or easy bruising EXAM Physical Exam Const Vital Signs: 05/07/22 07:49 Temperature 96.8 F L Temperature Source Temporal Pulse Rate 91 Respiratory Rate 16 Blood Pressure 149/81 H Blood Pressure Mean 103 Pulse Ox 99 Oxygen Delivery Method Room Air Positive obese; Negative for well nourished or well developed Constitutional Narrative: Patient appears uncomfortable. She was standing when I entered the room. She stated she preferred to stand versus sitting. General Appearance ED: Negative for well developed, NAD or pallor Nutritional Appearance: obese HEENT Reports moist mucous membranes HEENT Narrative: Atraumatic normocephalic. Ears normal. Nares patent. Mucosa moist. Eyes PERRL and EOMs intact bilaterally General Eye ED: Negative for pale conjunctiva or scleral icterus Neck no lymphadenopathy, supple and no JVD Resp normal respiratory effort and clear to auscultation bilaterally Cardio regular rate and regular rhythm GI normal to inspection, nondistended, normoactive bowel sounds, soft to palpation, non-tender, non-distended and no masses Back/Spine normal to inspection; Negative for no thoracic nor lumbar tenderness Back/Spine Narrative: Crossover test was negative. Femoral stretch test was negative. Patella ankle reflex are 2-3+ and symmetric. There is no clonus Babinski sign. EHLs intact. Gait observed and no foot drop. Able to walk on heels and toes. Able to perform a 1 legged squat right and left. Normal sensation over L3, L4, L5 and S1 dermatome. DP PT pulse palpable. Cervical Spine: Negative for cervical spine tenderness Thoracic Spine / Upper Back: Negative for paraspinal muscle tenderness Lumbar Spine / Lower Back: ROM limited and straight leg raise negative bilaterally Extremity normal to inspection and no clubbing, cyanosis or edema Neuro oriented x3 and no sensory deficits noted Sensorium / Orientation: alert Motor Exam: strength 5/5 throughout Deep Tendon Reflexes: Rt Patellar (L4): 3+, Lt Patellar (L4): 3+, Rt Ankle (S1): 3+ and Lt Ankle (S1): 3+ Deep Tendon Reflexes Back: Rt Patellar (L4): 3+, Lt Patellar (L4): 3+, Rt Ankle (S1): 3+ and Lt Ankle (S1): 3+ Plantar Reflex: Downgoing: bilateral Psych Mood & Affect: tearful Skin no rashes or lesions noted and no wounds General Skin Exam: Negative for jaundice or pallor MDM MDM MDM Narrative Medical decision making narrative: History and physical is consistent with muscular pain. There is no concern for cauda equina syndrome or herniated disc. Patient does not have radicular pain and there are no objective findings. Patient was medicated with IV Toradol, morphine and Zofran for nausea. Will reassess in 30 to 60 minutes. Treatment and Re-Evaluation Narrative: Patient was reassessed at 0923. She had marked improvement. She was instructed discontinue the prednisone. She was placed on NSAID and opiate analgesia. She was instructed to apply ice not heat for the next several days. Discharge Plan Triage Chief Complaint: Back ED Provider: Edward Adair Dx/Rx/DC Orders Clinical Impression: Lower back pain, Acute lumbosacral myofascial strain Instructions: ED Back Sprain/Strain Prescriptions: New hydrocodone-acetaminophen [hydrocodone-acetaminophen] 5-325 mg tablet 1 tab PO Q6H PRN PRN (Reason: Pain) 3 Days Qty: 10 0RF naproxen 500 mg tablet 500 mg PO BID Qty: 14 0RF No Action trospium 60 mg capsule,extended release 24hr 60 mg PO DAILY modafinil 200 mg tablet 200 mg PO DAILY Label Comments: take 2 tablets by mouth once daily pantoprazole 40 mg tablet,delayed release (DR/EC) 40 mg PO DAILY Label Comments: take 1 tablet by mouth once daily famotidine 20 mg tablet 20 mg PO DAILY Label Comments: take 1 tablet by mouth twice a day estradiol 10 mcg tablet 10 mcg vaginal PRN PRN (Reason: check) Label Comments: insert 1 tablet vaginally two times a week cyclobenzaprine 10 mg tablet 10 mg PO TID PRN (Reason: muscle spasm) Qty: 20 0RF phenazopyridine [Pyridium] 100 mg tablet 100 mg PO TID PRN (Reason: pain) Qty: 7 0RF Rx Instructions: administer with a full glass of water after each meal ibuprofen 600 mg tablet 600 mg PO Q6H PRN (Reason: pain) Qty: 40 0RF cyclobenzaprine 10 mg tablet 10 mg PO TID PRN (Reason: muscle spasm) Qty: 30 0RF levothyroxine 100 MCG tablet 125 mcg PO DAILY dextroamphetamine-amphetamine 20 MG tablet 20 mg PO TID bupropion HCl 200 MG tablet 200 mg PO DAILY aripiprazole 30 MG tablet 20 mg PO QHS citalopram 20 MG tablet 40 mg PO DAILY Sunosi 150 mg tablet 150 mg PO DAILY Primary Care Provider: Quynh Sneed NP Referrals: Quynh Sneed NP, PERFORMANCE TEST CONSULTANT-C [Primary Care Provider] - 1 Week if not improving Disposition Disposition: Home, Self Care
[2022-05-07] MEDS: Ketorolac 15 MG/ML Vial IV (08:23)
[2022-05-07] MEDS: Ondansetron 4 MG/2 ML Vial IV (08:23)
[2022-05-07] MEDS: morphine 8 MG/ML Syringe IV (08:23)
== END 2022-05-07 09:45 | disposition home or self-care (01) ==
PROVIDERS: Emergency Provider Emergency Medicine; PCP Registered Nurse; Visit Provider Emergency Medicine
DX: S39.012A Strain of muscle, fascia and tendon of lower back, initial encounter (principal); Z87.891 Personal history of nicotine dependence; G89.29 Other chronic pain; R11.0 Nausea; M54.50 Low back pain, unspecified; X58.XXXA Exposure to other specified factors, initial encounter
CPT/HCPCS: 96374; 96375; 99283; A4216; J2405

== ENCOUNTER 2022-05-08 12:03 | Emergency (ER) | payer OTHER, SELFPAY ==
[2022-05-08 12:05] VITALS: BP 141/75; PULSE 85; RESP 16; TEMP 36.2; O2SAT 99; BMI 37.1
--- NOTE | 2022-05-08 12:46 | CT_ITS ---
STUDY: CT ABDOMEN AND PELVIS WITH CONTRAST REASON FOR EXAM: Female, 52 years old. rlq abdominal pain RADIATION DOSAGE (If Supplied By Facility): CTDIvol = ( 17.96 ) mGy, DLP = ( 1276.24 ) mGycm TECHNIQUE: Transaxial images were obtained from the dome of the diaphragm to the symphysis pubis without oral contrast. IV 100mL Isovue-300 was administered. Sagittal and coronal images were reconstructed. Individualized dose optimization techniques were used for this CT. COMPARISON: Comparison is made with prior study 03/14/2018. FINDINGS: Minimal linear atelectasis at the lung bases. The visualized portions of the heart are within normal limits. Mild hepatomegaly. Normal gallbladder and extrahepatic biliary system. Stable 2.3 cm x 2.8 cm septated cyst along the anterior aspect of the spleen. Normal pancreas. Normal bilateral adrenal glands. Normal right kidney. Normal left kidney. Normal visualized stomach. Normal small intestine. Normal colon. The appendix is visualized and appears normal. There is scattered atherosclerotic calcification of the abdominal aorta, without a demonstrated aneurysm. Normal inferior vena cava. Normal retroperitoneum. Normal urinary bladder. There is a diastases recti. Normal osseous structures. CT/Abdomen/Pelvis W IV Cont ONLY IMPRESSION: Hepatomegaly. Electronically Signed: Gunnar Morrissey MD at 13:54 EST ,
--- NOTE | 2022-05-08 12:47 | ED.VIS.GI ---
HPI HPI - GI History of Present Illness Chief Complaint: Flank Pain Narrative Narrative: 52-year-old female presenting with right-sided back pain. She states this started on Wednesday. She states she was seen a couple of days ago and had x-rays of the back which were negative for acute findings. She was seen yesterday in the ER and diagnosed with musculoskeletal pain. She was given [place] and Naprosyn for home and she states the pain is increasing and now wrapping around the front of her abdomen. She states she has not been nauseous or vomiting and is actually been able to eat. She denies dysuria or hematuria. She had a urinalysis done yesterday which was negative for infection. She denies constipation or diarrhea. She has not had fever or chills. She states her only surgical history is a bladder sling. [facility] Medical History Acute thoracic myofascial strain Home Medications dextroamphetamine-amphetamine 20 mg tablet 20 mg PO TID 12/19/15 [History Last Taken 10/08/16 07:00] levothyroxine 100 mcg tablet 125 mcg PO DAILY 12/19/15 [History Last Taken Unknown] aripiprazole 30 mg tablet 20 mg PO QHS 08/27/16 [History Last Taken Unknown] bupropion HCl 200 mg tablet,12 hr sustained-release 200 mg PO DAILY 08/27/16 [History Last Taken Unknown] citalopram 20 mg tablet 40 mg PO DAILY 10/02/16 [History Last Taken Unknown] cyclobenzaprine 10 mg tablet 10 mg PO TID PRN muscle spasm #20 tabs 11/08/21 [Rx Last Taken Unknown] estradiol 10 mcg vaginal tablet 10 mcg vaginal PRN PRN check 11/08/21 [History Last Taken Unknown] famotidine 20 mg tablet 20 mg PO DAILY 11/08/21 [History Last Taken Unknown] modafinil 200 mg tablet 200 mg PO DAILY 11/08/21 [History Last Taken Unknown] pantoprazole 40 mg tablet,delayed release 40 mg PO DAILY 11/08/21 [History Last Taken Unknown] trospium 60 mg capsule,extended release 24 hr 60 mg PO DAILY 11/08/21 [History Last Taken Unknown] phenazopyridine 100 mg tablet (Pyridium) 100 mg PO TID PRN pain 6 doses #7 tabs 11/27/21 [Rx Last Taken Unknown] cyclobenzaprine 10 mg tablet 10 mg PO TID PRN muscle spasm #30 tabs 04/20/22 [Rx Last Taken Unknown] ibuprofen 600 mg tablet 600 mg PO Q6H PRN pain #40 tabs 04/20/22 [Rx Last Taken Unknown] hydrocodone-acetaminophen 5-325mg 5mg-325mg 1 tab PO Q6H PRN PRN Pain 3 days #10 TABLETS 05/07/22 [Rx Last Taken Unknown] naproxen 500 mg tablet 500 mg PO BID #14 tabs 05/07/22 [Rx Last Taken Unknown] solriamfetol 150 mg tablet (Sunosi) 150 mg PO DAILY 05/07/22 [History Last Taken Unknown] lidocaine 5 % topical patch 1 patch topical DAILY #15 ea 05/08/22 [Rx Last Taken Unknown] ondansetron 4 mg disintegrating tablet 4 mg PO Q8H PRN nausea and vomiting #14 tabs 05/08/22 [Rx Last Taken Unknown] oxycodone 5 mg tablet 5 mg PO Q6H PRN pain 3 days #12 tabs 05/08/22 [Rx Last Taken Unknown] Allergy/AdvReac Type Severity Reaction Status Date / Time cefaclor [From Ceclor] Allergy Anaphylaxis Verified 05/08/22 12:07 Cephalosporins Allergy Anaphylaxis Verified 05/08/22 12:07 Penicillins [PCN] Allergy Anaphylaxis Verified 05/08/22 12:07 Sulfa (Sulfonamide Allergy Anaphylaxis Verified 05/08/22 12:07 Antibiotics) Social History (Updated 05/07/22 @ 08:[address] Edward Adair MD) household members: none Smoking Status: Former smoker alcohol intake: never substance use type: does not use ROS ROS ED Constitutional Constitutional ED: Denies chills or fever(s) ENT ENT ED: Denies rhinorrhea or sore throat Cardiovascular Cardiovascular: Denies chest pain or palpitations Respiratory/Chest Respiratory/Chest: Denies cough or dyspnea Gastrointestinal Gastrointestinal: Reports abdominal pain; Denies constipation, diarrhea, melena or nausea Genitourinary Genitourinary ED: Denies dysuria or hematuria Musculoskeletal Musculoskeletal: Reports back pain; Denies arthralgias Integumentary Denies abscess or Abrasions Neurologic Neurologic: Denies headache(s) Psychiatric Psychiatric: Denies anxiety or depression EXAM Physical Exam Const Vital Signs: 05/08/22 12:05 05/08/22 14:39 Temperature 97.2 F L Temperature Source Temporal Pulse Rate 85 Respiratory Rate 16 16 Blood Pressure 141/75 H Blood Pressure Mean 97 Pulse Ox 99 Oxygen Delivery Method Room Air Positive well nourished General Appearance ED: NAD; Negative for pallor HEENT Reports TM's clear and moist mucous membranes normocephalic Tympanic Membrane ED: Yes TM's clear Eyes PERRL and EOMs intact bilaterally Resp normal respiratory effort and clear to auscultation bilaterally Cardio regular rate and regular rhythm GI Palpation: tender RLQ Back/Spine General Back: CVA tenderness right Neuro CN's II-XII intact bilaterally Motor Exam: strength 5/5 throughout Psych mental status grossly normal and thought process normal Skin General Skin Exam: Negative for jaundice or pallor MDM MDM MDM Narrative Medical decision making narrative: Patient presenting with right-sided flank pain that radiates into the right lower abdomen. Patient initially given morphine, Zofran. Obtain lab work and her CBC is within normal limits. Creatinine slightly elevated 1.25. Electrolytes are normal. LFTs within normal limits. Lipase is negative. Serum hCG is negative. CT of the abdomen pelvis which only shows hepatomegaly. The appendix is visualized and appears normal. Patient requested a second dose of pain medication and was given Dilaudid. Discussed all the findings with her. She had a urinalysis performed yesterday which was negative for infection. We will change the patient to oxycodone and give her Lidoderm patches as this appears to be musculoskeletal in nature. Recommended follow-up with her PCP. Return precautions were discussed. Impression: 1. Flank pain 2. Abdominal pain Lab Data Attestation: I reviewed the patient's lab results. Labs: Laboratory Results - last 24 hr 05/08/22 05/08/22 05/08/22 12:54 12:54 12:57 WBC 10.5 RBC 4.67 Hgb 13.0 Hct 40.4 MCV 86.5 MCH 27.8 MCHC 32.2 RDW Std Deviation 46.2 H RDW Coeff of Jeremy 14.6 Plt Count 340 MPV 9.9 Immature Gran % (Auto) 0.300 Neut % (Auto) 54.4 Lymph % (Auto) 36.1 [place] % (Auto) 6.6 Eos % (Auto) 2.3 Baso % (Auto) 0.3 Absolute Neuts (auto) 5.7 Absolute Lymphs (auto) 3.78 Nucleated RBC % 0 Sodium 138 Potassium 4.3 Chloride 104 Carbon Dioxide 27.0 Anion Gap 7 BUN 26 H Creatinine 1.25 H Estim Creat Clear Calc 49.28 Est GFR (MDRD) Af Amer 58 L Est GFR (MDRD) Non-Af 48 L BUN/Creatinine Ratio 20.8 H Glucose 96 Calcium 8.8 Total Bilirubin 0.30 AST 11 L ALT 23 Alkaline Phosphatase 87 Total Protein 7.4 Albumin 4.1 Globulin 3.3 Albumin/Globulin Ratio 1.2 Lipase 100 Serum , Qual NEGATIVE Radiography Diagnostic Testing: Clinical Impression(s) from Imaging Studies Abdomen/Pelvis CT 05/08/22 12:46 IMPRESSION: Hepatomegaly. Electronically Signed: Gunnar Morrissey MD at 13:54 EST , Discharge Plan Triage Chief Complaint: Flank Pain ED Provider: Gilberto Encinas Dx/Rx/DC Orders Instructions: ED Flank Pain, Uncertain Cause Prescriptions: New oxycodone 5 mg tablet 5 mg PO Q6H PRN (Reason: pain) 3 Days Qty: 12 0RF ondansetron 4 mg tablet,disintegrating 4 mg PO Q8H PRN (Reason: nausea and vomiting) Qty: 14 0RF lidocaine 5 % adhesive patch,medicated 1 patch topical DAILY Qty: 15 0RF Rx Instructions: leave on most painful area for up to 12 hrs No Action trospium 60 mg capsule,extended release 24hr 60 mg PO DAILY modafinil 200 mg tablet 200 mg PO DAILY Label Comments: take 2 tablets by mouth once daily pantoprazole 40 mg tablet,delayed release (DR/EC) 40 mg PO DAILY Label Comments: take 1 tablet by mouth once daily famotidine 20 mg tablet 20 mg PO DAILY Label Comments: take 1 tablet by mouth twice a day estradiol 10 mcg tablet 10 mcg vaginal PRN PRN (Reason: check) Label Comments: insert 1 tablet vaginally two times a week cyclobenzaprine 10 mg tablet 10 mg PO TID PRN (Reason: muscle spasm) Qty: 20 0RF phenazopyridine [Pyridium] 100 mg tablet 100 mg PO TID PRN (Reason: pain) Qty: 7 0RF Rx Instructions: administer with a full glass of water after each meal ibuprofen 600 mg tablet 600 mg PO Q6H PRN (Reason: pain) Qty: 40 0RF cyclobenzaprine 10 mg tablet 10 mg PO TID PRN (Reason: muscle spasm) Qty: 30 0RF levothyroxine 100 MCG tablet 125 mcg PO DAILY dextroamphetamine-amphetamine 20 MG tablet 20 mg PO TID bupropion HCl 200 MG tablet 200 mg PO DAILY aripiprazole 30 MG tablet 20 mg PO QHS citalopram 20 MG tablet 40 mg PO DAILY [place] 150 mg tablet 150 mg PO DAILY hydrocodone-acetaminophen [hydrocodone-acetaminophen] 5-325 mg tablet 1 tab PO Q6H PRN PRN (Reason: Pain) 3 Days Qty: 10 0RF naproxen 500 mg tablet 500 mg PO BID Qty: 14 0RF Primary Care Provider: Quynh Sneed NP Referrals: Quynh Sneed NP, LAB SYSTEMS ANALYST-C [Primary Care Provider] - Disposition Disposition: Home, Self Care
[2022-05-08] MEDS: Morphine 4 MG/ML Syringe IV (13:00)
[2022-05-08] MEDS: Ondansetron 4 MG/2 ML Vial IV (13:00)
[2022-05-08] MEDS: 0.9% Normal Saline 1,000 ML 1000 ML IV (13:00)
[2022-05-08 13:11] LABS: Absolute Lymphocyte Count 3.78 X10^3/uL (0.83-4.51); Absolute Neutrophil Count 5.7 X10^3/uL (2.0-7.7); Basophil# 0.03 X10^3/uL; Basophil% 0.3 % (0-1); Eosinophil# 0.24 X10^3/uL; Eosinophils% 2.3 % (0-5); Hematocrit 40.4 % (37-47); Lymphocyte # 3.78 X10^3/ul (0.83-4.51); Lymphocyte % 36.1 % (19-41); Mean Corp Hgb Conc 32.2 g/dL (32-36); Mean Corpuscular Hgb 27.8 pg (27.0-32.0); Mean Corpuscular Volume 86.5 fL (81-99); Mean Platelet Vol. 9.9 fl (6.2-12.0); Monocyte# 0.69 X10^3/uL; Monocyte% 6.6 % (0-10); NRBC Flagged by Analyzer 0 % (0-5); Neutrophil % 54.4 % (47-70); Platelet Count 340 K/mm3 (150-450); RBC Distribution Width CV 14.6 % (11.6-14.6); RBC Distribution Width SD 46.2 fl (35.1-43.9); Red Blood Count 4.67 M/mm3 (4.2-5.4); White Blood Count 10.5 K/mm3 (4.4-11.0)
[2022-05-08 13:26] LABS: ALB/GLOB Ratio 1.2 RATIO (0.9-2.4); AST(SGOT) 11 U/L (15-37); Alanine Aminotransfer ALT/SGPT 23 U/L (13-56); Albumin, Serum 4.1 g/dL (3.2-5.0); Alkaline Phosphatase 87 U/L (45-117); Anion Gap 7 (5-15); BUN 26 mg/dL (7-18); BUN/Creat Ratio 20.8 RATIO (10-20); Calcium,Total 8.8 mg/dL (8.5-10.1); Chloride 104 mmol/L (98-107); Creatinine, Serum 1.25 mg/dL (0.55-1.02); EST Glomerular Filtration Rate 48 mL/min (>60); Est Glom Filt Rate - Afr Amer 58 mL/min (>60); Estimated Creatinine Clearance 49.28 ml/min; Globulin 3.3 g/dL (2.2-4.2); Glucose 96 mg/dL (74-106); Lipase 100 U/L (73-393); Potassium 4.3 mmol/L (3.5-5.1); Protein, Total 7.4 g/dL (6.4-8.2); Sodium Level 138 mmol/L (136-145)
[2022-05-08] MEDS: HYDROmorphone 1 MG/ML Syringe IV (14:22)
[2022-05-08 14:39] VITALS: RESP 16
[2022-05-08 14:47] LABS: Internal QC Validated? YES +Cl - CLEAR BKGD; Pregnancy, Serum, hCG Quali. NEGATIVE Negative
[2022-05-08] MEDS: oxyCODONE 5 MG Tablet PO (15:58)
[2022-05-08 16:07] VITALS: BP 122/82; PULSE 81; RESP 18; O2SAT 98
== END 2022-05-08 16:07 | disposition home or self-care (01) ==
PROVIDERS: Emergency Provider Student in an Organized Health Care Education/Training Program; PCP Registered Nurse; Visit Provider Student in an Organized Health Care Education/Training Program
DX: R10.9 Unspecified abdominal pain (principal); R16.0 Hepatomegaly, not elsewhere classified; M54.9 Dorsalgia, unspecified; Z87.891 Personal history of nicotine dependence
CPT/HCPCS: 74177; 80053; 83690; 84703; 85025; 96361; 96374; 96375; 99283; J7030; Q9967; A4216; J2405

== ENCOUNTER 2022-05-25 14:06 | Emergency (ER) | payer OTHER, SELFPAY ==
[2022-05-25 14:09] VITALS: BP 173/74; PULSE 93; RESP 18; TEMP 36.3; O2SAT 97; BMI 38.2
[2022-05-25 15:38] VITALS: BP 171/100; PULSE 82; RESP 16; O2SAT 99
--- NOTE | 2022-05-25 15:45 | MRI_ITS ---
STUDY: MRI LUMBAR SPINE WITHOUT CONTRAST REASON FOR EXAM: Female, 52 years old. back pain, incontinence TECHNIQUE: Standardized fat and water weighted pulse sequences were obtained in the sagittal and axial planes. COMPARISON: None FINDINGS: T12-L1: Normal endplates. Normal disc height, hydration and morphology. Normal bilateral facet joints. Normal central canal and bilateral lateral recesses. Normal bilateral intervertebral neural foramina. Normal lumbar lordosis. There is no substantial scoliosis. Normal conus medullaris that terminates at the T12/L1. L1-2: Normal endplates. Normal disc height, hydration and morphology. Normal bilateral facet joints. Normal central canal and bilateral lateral recesses. Normal bilateral intervertebral neural foramina. L2-3: Normal endplates. Normal disc height, hydration and morphology. Normal bilateral facet joints. Normal central canal and bilateral lateral recesses. Normal bilateral intervertebral neural foramina. L3-4: Normal endplates. Normal disc height, hydration and morphology. Normal bilateral facet joints. Normal central canal and bilateral lateral recesses. Normal bilateral intervertebral neural foramina. L4-5: There is bilateral facet hypertrophy resulting in moderate spinal canal narrowing at this level with no significant disc bulge. There is demonstrated abutment of the exiting L4 nerve root due to facet arthropathy.. Mild bilateral lateral recess narrowing is noted. L5-S1: Disc desiccation and central disc annular fissure is present. No significant spinal canal narrowing or foraminal narrowing is evident. Normal visualized sacral ala. Normal visualized paraspinous soft tissue structures. MRI/Spine Lumbar (Routine) IMPRESSION: 1. L4-5 facet arthropathy resulting in proximal abutment of the exiting L4 nerve root, clinically correlate for exiting L4 radiculopathy. Moderate spinal canal narrowing at this level is noted. 2. L5/S1 central disc annular fissure with no significant spinal canal narrowing or foraminal narrowing. Electronically Signed: Negro Deutsch DO at 17:41 EST ,
--- NOTE | 2022-05-25 15:48 | ED.VIS.BACK ---
HPI History of Present Illness Chief Complaint: Back Informant: patient Onset/Context/Timing Onset: Weeks (3-weeks) Narrative Narrative: Patient presents with continued low back pain that wraps around to the right groin. She is been seen a couple times previously for same. She had negative x-ray and CT flank performed. Patient states she continues to have pain that wraps around into the groin and proximal thigh on the right along with numbness and tingling to this area only. Over the past week she has now had trouble with bladder control. Her primary care physician was trying to get an emergent MRI, but they are waiting insurance clearance. She denies fever or chills. She denies prior back surgery. [facility] Medical History Depression Hx of gastroesophageal reflux (GERD) Hypothyroidism Home Medications dextroamphetamine-amphetamine 20 mg tablet 20 mg PO TID 12/19/15 [History Last Taken 10/08/16 07:00] levothyroxine 100 mcg tablet 125 mcg PO DAILY 12/19/15 [History Last Taken Unknown] aripiprazole 30 mg tablet 20 mg PO QHS 08/27/16 [History Last Taken Unknown] bupropion HCl 200 mg tablet,12 hr sustained-release 200 mg PO DAILY 08/27/16 [History Last Taken Unknown] citalopram 20 mg tablet 40 mg PO DAILY 10/02/16 [History Last Taken Unknown] cyclobenzaprine 10 mg tablet 10 mg PO TID PRN muscle spasm #20 tabs 11/08/21 [Rx Last Taken Unknown] estradiol 10 mcg vaginal tablet 10 mcg vaginal PRN PRN check 11/08/21 [History Last Taken Unknown] famotidine 20 mg tablet 20 mg PO DAILY 11/08/21 [History Last Taken Unknown] modafinil 200 mg tablet 200 mg PO DAILY 11/08/21 [History Last Taken Unknown] pantoprazole 40 mg tablet,delayed release 40 mg PO DAILY 11/08/21 [History Last Taken Unknown] trospium 60 mg capsule,extended release 24 hr 60 mg PO DAILY 11/08/21 [History Last Taken Unknown] phenazopyridine 100 mg tablet (Pyridium) 100 mg PO TID PRN pain 6 doses #7 tabs 11/27/21 [Rx Last Taken Unknown] cyclobenzaprine 10 mg tablet 10 mg PO TID PRN muscle spasm #30 tabs 04/20/22 [Rx Last Taken Unknown] ibuprofen 600 mg tablet 600 mg PO Q6H PRN pain #40 tabs 04/20/22 [Rx Last Taken Unknown] hydrocodone-acetaminophen 5-325mg 5mg-325mg 1 tab PO Q6H PRN PRN Pain 3 days #10 TABLETS 05/07/22 [Rx Last Taken Unknown] naproxen 500 mg tablet 500 mg PO BID #14 tabs 05/07/22 [Rx Last Taken Unknown] solriamfetol 150 mg tablet (Sunosi) 150 mg PO DAILY 05/07/22 [History Last Taken Unknown] lidocaine 5 % topical patch 1 patch topical DAILY #15 ea 05/08/22 [Rx Last Taken Unknown] ondansetron 4 mg disintegrating tablet 4 mg PO Q8H PRN nausea and vomiting #14 tabs 05/08/22 [Rx Last Taken Unknown] oxycodone 5 mg tablet 5 mg PO Q6H PRN pain 3 days #12 tabs 05/08/22 [Rx Last Taken Unknown] gabapentin 300 mg tablet 300 mg PO TID 05/25/22 [History Last Taken Unknown] prednisone 10 mg tablet See Taper PO DAILY #63 tabs 05/25/22 [Rx Last Taken Unknown] Allergy/AdvReac Type Severity Reaction Status Date / Time cefaclor [From [facility]] Allergy Anaphylaxis Verified 05/25/22 14:11 Cephalosporins Allergy Anaphylaxis Verified 05/25/22 14:11 Penicillins [PCN] Allergy Anaphylaxis Verified 05/25/22 14:11 Sulfa (Sulfonamide Allergy Anaphylaxis Verified 05/25/22 14:11 Antibiotics) Social History household members: none Smoking Status: Former smoker alcohol intake: never substance use type: does not use ROS ROS ED Constitutional Constitutional ED: Denies chills or fever(s) Eyes Eyes: Denies change in vision or discharge from eye(s) ENT ENT ED: Denies discharge from eye(s), rhinorrhea or sore throat Cardiovascular Cardiovascular: Denies chest pain or palpitations Respiratory/Chest Respiratory/Chest: Denies cough or dyspnea Gastrointestinal Gastrointestinal: Reports abdominal pain; Denies diarrhea, nausea or vomiting Genitourinary Genitourinary ED: Reports other Details: Urinary incontinence ; Denies difficulty urinating or dysuria Musculoskeletal Musculoskeletal: Reports back pain and extremity pain Integumentary Denies Abrasions or rash Neurologic Neurologic: Denies headache(s) or weakness Allergic/Immunologic Allergic/Immunologic ED: Denies lip swelling or urticaria EXAM Physical Exam Const Vital Signs: 05/25/22 14:09 05/25/22 15:38 05/25/22 17:48 Temperature 97.3 F L Temperature Source Temporal Pulse Rate 93 82 87 Respiratory Rate 18 16 16 Blood Pressure 173/74 H 171/100 H 158/90 H Blood Pressure Mean 107 123 112 Pulse Ox 97 99 99 Oxygen Delivery Method Room Air Room Air Positive well nourished and well developed General Appearance ED: well developed HEENT Reports normocephalic and head/scalp atraumatic Eyes PERRL and EOMs intact bilaterally Neck supple Chest Wall inspection of chest normal and palpation of chest normal Resp normal respiratory effort and clear to auscultation bilaterally Cardio regular rate and regular rhythm GI normal to inspection, nondistended, normoactive bowel sounds Palpation: soft Extremity normal to inspection Neuro oriented x3 and no sensory deficits noted Sensorium / Orientation: alert Motor Exam: strength 5/5 throughout Deep Tendon Reflexes: Rt Patellar (L4): 2+ and Lt Patellar (L4): 2+ Deep Tendon Reflexes Back: Rt Patellar (L4): 2+ and Lt Patellar (L4): 2+ Psych Mood & Affect: tearful Skin no rashes or lesions noted MDM MDM MDM Narrative Medical decision making narrative: Patient was given Dilaudid and Zofran for pain. MRI of lumbar spine obtained. Lab work ordered. Lab Data Labs: Laboratory Results - last 24 hr 05/25/22 05/25/22 05/25/22 16:00 16:00 17:50 WBC 9.7 RBC 4.74 Hgb 13.6 Hct 41.4 MCV 87.3 MCH 28.7 MCHC 32.9 RDW Std Deviation 46.9 H RDW Coeff of Jeremy 14.6 Plt Count 294 MPV 9.1 Immature Gran % (Auto) 0.400 Neut % (Auto) 58.2 Lymph % (Auto) 31.5 Richardson % (Auto) 7.1 Eos % (Auto) 2.6 Baso % (Auto) 0.2 Absolute Neuts (auto) 5.7 Absolute Lymphs (auto) 3.06 Nucleated RBC % 0 Sodium 141 Potassium 4.0 Chloride 107 Carbon Dioxide 30.0 Anion Gap 4 L BUN 13 Creatinine 1.01 Estim Creat Clear Calc 61.00 Est GFR (MDRD) Af Amer 74 Est GFR (MDRD) Non-Af 61 BUN/Creatinine Ratio 12.9 Glucose 101 Calcium 9.3 Urine Color Yellow Urine Clarity Clear Urine pH 6.5 Ur Specific [place] 1.015 Urine Protein Negative Urine Glucose (UA) Normal Urine Ketones Negative Urine Occult Blood Negative Urine Nitrite Negative Urine Bilirubin Negative Urine Urobilinogen Normal Ur Leukocyte Esterase Negative Radiography Diagnostic Testing: Clinical Impression(s) from Imaging Studies Lumbar Spine MRI 05/25/22 15:45 IMPRESSION: 1. L4-5 facet arthropathy resulting in proximal abutment of the exiting L4 nerve root, clinically correlate for exiting L4 radiculopathy. Moderate spinal canal narrowing at this level is noted. 2. L5/S1 central disc annular fissure with no significant spinal canal narrowing or foraminal narrowing. Electronically Signed: Negro Deutsch DO at 17:41 EST Reading Location ID and State: [facility] / [place] , Service support , Treatment and Re-Evaluation Narrative: Lab work and urinalysis are unremarkable. Lumbar spine x-rays reveals facet arthropathy abutting the L4 nerve root. Moderate spinal canal narrowing is noted. Test results are discussed with patient and at bedside. She just picked up a new prescription for Percocet today. I will write her for another prednisone taper. She is referred to spinal surgeon for evaluation and further treatment. Discharge Plan Triage Chief Complaint: Back ED Provider: Deya Lugo Dx/Rx/DC Orders Clinical Impression: Back pain, Acute lumbar radiculopathy Instructions: ED Back Pain (Acute or Chronic) Prescriptions: New prednisone 10 mg tablet See Taper PO DAILY Qty: 63 0RF Taper: Prednisone Taper 60 mg WITH BREAKFAST for 3 Days and 0 Hour 50 mg WITH BREAKFAST for 3 Days and 0 Hour 40 mg WITH BREAKFAST for 3 Days and 0 Hour 30 mg WITH BREAKFAST for 3 Days and 0 Hour 20 mg WITH BREAKFAST for 3 Days and 0 Hour 10 mg WITH BREAKFAST for 3 Days and 0 Hour No Action trospium 60 mg capsule,extended release 24hr 60 mg PO DAILY modafinil 200 mg tablet 200 mg PO DAILY Label Comments: take 2 tablets by mouth once daily pantoprazole 40 mg tablet,delayed release (DR/EC) 40 mg PO DAILY Label Comments: take 1 tablet by mouth once daily famotidine 20 mg tablet 20 mg PO DAILY Label Comments: take 1 tablet by mouth twice a day estradiol 10 mcg tablet 10 mcg vaginal PRN PRN (Reason: check) Label Comments: insert 1 tablet vaginally two times a week cyclobenzaprine 10 mg tablet 10 mg PO TID PRN (Reason: muscle spasm) Qty: 20 0RF phenazopyridine [Pyridium] 100 mg tablet 100 mg PO TID PRN (Reason: pain) Qty: 7 0RF Rx Instructions: administer with a full glass of water after each meal ibuprofen 600 mg tablet 600 mg PO Q6H PRN (Reason: pain) Qty: 40 0RF cyclobenzaprine 10 mg tablet 10 mg PO TID PRN (Reason: muscle spasm) Qty: 30 0RF levothyroxine 100 MCG tablet 125 mcg PO DAILY dextroamphetamine-amphetamine 20 MG tablet 20 mg PO TID bupropion HCl 200 MG tablet 200 mg PO DAILY aripiprazole 30 MG tablet 20 mg PO QHS citalopram 20 MG tablet 40 mg PO DAILY Sunosi 150 mg tablet 150 mg PO DAILY hydrocodone-acetaminophen [hydrocodone-acetaminophen] 5-325 mg tablet 1 tab PO Q6H PRN PRN (Reason: Pain) 3 Days Qty: 10 0RF naproxen 500 mg tablet 500 mg PO BID Qty: 14 0RF oxycodone 5 mg tablet 5 mg PO Q6H PRN (Reason: pain) 3 Days Qty: 12 0RF ondansetron 4 mg tablet,disintegrating 4 mg PO Q8H PRN (Reason: nausea and vomiting) Qty: 14 0RF lidocaine 5 % adhesive patch,medicated 1 patch topical DAILY Qty: 15 0RF Rx Instructions: leave on most painful area for up to 12 hrs gabapentin 300 mg Tablet 300 mg PO TID Primary Care Provider: Quynh Sneed NP Referrals: Wicho Salomon DO [Med Staff - Active Staff] - As soon as possible Quynh Sneed NP, CUSTOMER [employer]VOCACY MANAGER-C [Primary Care Provider] - Disposition Disposition: Home, Self Care
[2022-05-25] MEDS: HYDROmorphone 1 MG/ML Syringe 0.5 MG IV (15:57)
[2022-05-25] MEDS: Ondansetron 4 MG/2 ML Vial IV (15:57)
[2022-05-25 16:15] LABS: Hematocrit 41.4 % (37-47); Hemoglobin 13.6 g/dL (12.0-15.0); Mean Corp Hgb Conc 32.9 g/dL (32-36); Mean Corpuscular Hgb 28.7 pg (27.0-32.0); Mean Corpuscular Volume 87.3 fL (81-99); Mean Platelet Vol. 9.1 fl (6.2-12.0); Neutrophil % 58.2 % (47-70); Platelet Count 294 K/mm3 (150-450); RBC Distribution Width CV 14.6 % (11.6-14.6); RBC Distribution Width SD 46.9 fl (35.1-43.9); Red Blood Count 4.74 M/mm3 (4.2-5.4); White Blood Count 9.7 K/mm3 (4.4-11.0)
[2022-05-25 16:16] LABS: Absolute Lymphocyte Count 3.06 X10^3/uL (0.83-4.51); Absolute Neutrophil Count 5.7 X10^3/uL (2.0-7.7); Basophil# 0.02 X10^3/uL; Basophil% 0.2 % (0-1); Eosinophil# 0.25 X10^3/uL; Eosinophils% 2.6 % (0-5); Lymphocyte # 3.06 X10^3/ul (0.83-4.51); Lymphocyte % 31.5 % (19-41); Monocyte# 0.69 X10^3/uL; Monocyte% 7.1 % (0-10); NRBC Flagged by Analyzer 0 % (0-5); Neutrophil # 5.66 X10^3/uL (2.7-7.7)
[2022-05-25 17:06] LABS: Anion Gap 4 (5-15); BUN 13 mg/dL (7-18); BUN/Creat Ratio 12.9 RATIO (10-20); Calcium,Total 9.3 mg/dL (8.5-10.1); Chloride 107 mmol/L (98-107); Creatinine, Serum 1.01 mg/dL (0.55-1.02); EST Glomerular Filtration Rate 61 mL/min (>60); Est Glom Filt Rate - Afr Amer 74 mL/min (>60); Glucose 101 mg/dL (74-106); Sodium Level 141 mmol/L (136-145)
[2022-05-25 17:48] VITALS: BP 158/90; PULSE 87; RESP 16; O2SAT 99
[2022-05-25 17:57] LABS: Bacteria 0 SEEN /hpf (None Seen); Mucous, Urine 0 SEEN /hpf (<or=2+); Red Blood Cells-Urine 0 SEEN /hpf (0-5); Squamous Epithelial Cells - UA 0 SEEN /hpf (5-10); White Blood Cells 0 SEEN /hpf (0-5)
[2022-05-25 18:03] LABS: Color, Urine Yellow (Yellow); Glucose, Dipstick Normal (Normal); Ketone-Dipstick Negative (Negative); Leukocyte Esterase-Dipstick Negative /ul (Negative); Nitrite-Dipstick Negative (Negative); Occult Blood-Urine Negative /ul (Negative); Protein-Dipstick Negative (Negative); Specific Gravity, Urine 1.015 (1.002-1.030); Urine Bilirubin Dipstick Negative (Negative); Urine Clarity Clear (Clear); Urine Urobilinogen Normal (Normal); Urine pH 6.5 (5.0 - 8.0)
== END 2022-05-25 18:20 | disposition home or self-care (01) ==
PROVIDERS: Emergency Provider Emergency Medicine; PCP Registered Nurse; Visit Provider Emergency Medicine
DX: M47.26 Other spondylosis with radiculopathy, lumbar region (principal); Z87.891 Personal history of nicotine dependence; Z79.52 Long term (current) use of systemic steroids; R32 Unspecified urinary incontinence
CPT/HCPCS: 72148; 80048; 81001; 85025; 96374; 96375; 99283; J2405

== ENCOUNTER 2022-08-03 14:00 | Outpatient (RCR) | payer OTHER, SELFPAY ==
--- NOTE | 2022-05-12 13:27 | HP.PTEVAL ---
Patient's Visit Information CRISTINA SPRING is a 52 year old F referred to Physical Therapy by Dr. Jose Manuel Gimenez MD with a diagnosis of LUMBAR RADICULOPATHY AND ACUTE MIDLINE THORACIC BACK PAIN. Date of Evaluation: 05/12/22 Physical Therapist: Esperanza Coombs, PT, Cert MDT - Visit Plan Frequency: 2-3x /Week Duration: 4-6 Weeks Plan: ATTEMPT PT TOLERATED WITH US, MH, E-STIM AND STM. ATTEMPT POSTURE CORRECTION/STRENGTHENING, INSTRUCTION IN APPROPRIATE BODY MECHANICS AND ACTIVITY MODIFICATIONS. DLS STARTING WITH A NEUTRAL SPINE PROGRESSING ROM TOLERATED. KYLE LE ROM, STRETCHING AND STRENGTHENING. HEP INSTRUCTION. CONSIDER AQUATIC THERAPY. AQUATIC THERAPY DISCUSSED WITH PATIENT AND PATIENT WILL CONSIDER. - Subjective Work/Leisure: WORKING 2 DAYS A WK AT [employer] IN [place] AND 2-3 DAYS A WK DOING MASSAGE OUT OF HOME. Present symptoms: SEVERE RIGHT LOW BACK PAIN RADIATING INTO STOMACH AND R BUTTOCK NUMBNESS INTO STOMACH AND THIGH. R GROIN PAIN. NO LLE SX'S. Present since: 05/04/22. Pain Scale: WORST 10/10, LEAST 6/10. Currently: 7/10. Is it getting better, worse or staying the same: STAYING THE SAME. Commenced as a result of: TWISTED AT HOME TO GRAB SOMETHING AND FELT A TWINGE IN R LOW BACK. THEN WAS SEATED GIVING PATIENT A MASSAGE AND FELT A SHARP STABBING PAIN IN RIGHT LOW BACK. GOT THROUGH MASSAGE. Worse: EVERYTHING - SITTING, STANDING, TRYING TO LAY DOWN... Better: PERCOCET. Disturbed sleep: HAS NOT SLEPT A FULL NIGHT SINCE LAST WEDNESDAY. Previous history/Previous treatment: PT FOR UPPER AND LOWER BACK IN THE PAST WITH SUCCESS. Treatment this episode: INITIALLY HURT UPPER BACK BETWEEN SHLD BLADES 04/20/22 WHILE REACHING FOR THE FACET AT HOME AND FELT A SHARP PAIN IN THE R MEDIAL SCAP REGION. WENT TO URGENT CARE SOON AFTER AND DX'D WITH TRAP STRAIN AND PRESCRIBED M. RELAXER WHICH DID NOT HELP. UPPER BACK PAIN WAS GETTING BETTER WHEN HURT LOW BACK AND NOW UPPER BACK PAIN HAS RESOLVED. UPPER BACK ACTUALLY STARTED HURTING A FEW WEEKS AGO FOR NO APPARENT REASON. SAW DR. GIMENEZ LAST WEDNESDAY FOR LOW BACK AND WAS PRESCRIBED PREDNISONE WHICH DID NOT HELP. WENT TO ED WEDNESDAY AND WAS GIVEN MORPHINE AND TORODOL AND PRESCRIBED HYDROCODONE. BACK TO THE ED WEDNESDAY AND HAD MORPHINE AND DILATED AND PRESCRIBED PERCOCET WITH SOME BENEFIT. SUFFERED THROUGH THE WEEKEND AND WENT BACK TO SEE JENNA KELLEY CNPT YESTERDAY AND PRESCRIBED PERCOCET, GABAPENTIN AND HIGHER DOSE OF PREDNISONE WITH LITTLE BENEFIT. STATES SHE MESSAGED PROVIDER AT 2AM, WAITING TO HEAR BACK AND STILL SUFFERING IN PAIN. DR. GIMENEZ ORDERED PT LAST WEDNESDAY AND JENNA KELLEY CNP AGREED TO PATIENT HAVING PT EVAL TODAY PER PATIENT REPORT. PATIENT ALSO REPORTS USING A HOME TENS UNIT THAT MAYBE HELPS A LITTLE BIT. Coughing/sneezing/straining: POSITIVE. Gait: SLOW AND PAINFUL. Bowel or Bladder Dysfunction: PATIENT DENIES. Accidents: NO. Unexplained weight loss: NO. Imaging: CT SCAN LAST WEDNESDAY IN ED WHICH WAS NORMAL PER PATIENT REPORT AND X-RAYS OF T-SPINE AND L-SPINE AT [facility] THAT SHOWED SOME DEGENERATION PER PATIENT REPORT. PMH/Recent major surgery: HYPOTHYROIDISM, FATTY LIVER. - Objective Sitting/Standing Posture: POOR. FH. RSH'S. REDUCED LUMBAR LORDOSIS. NO RELEVENT LATERAL SHIFT. Active Correction of posture: NE. Other Observations: THIS PATIENT AMBULATES INDEP'LY INTO PT TODAY WITH A VERY SLOW GUARDED ANTALGIC GAIT. NO AD'S. NO LOB. DECREASED TRUNK ROTATION AND NO ARM SWING. Sensory deficit: DECREASED LEFT PROXIMAL ANTERIOR AND LATERAL RIGHT THIGH LIGHT TOUCH SENSATION. PATIENT ALSO HAS DECREASED LIGHT TOUCH RIGHT ANTERIOR LOWER ABDOMEN. ROM deficit: MILD KYLE HS AND GASTROC SOLEUS TIGHTNESS. Motor deficit: KYLE LE'S 5/5 WITH MMT'ING INCLUDING EHL EXCEPT KYLE HIP STRENGTH APPEARS PAIN LIMITED AT 4-/5. Reflexes: KYLE LE QUADS AND ACHILLES 2/3 AND SYMMETRICAL. Dural Signs: POSITIVE KYLE LE'S. Lumbar mvmt loss: flex - TELLY. ext - MOD. R SG - MOD. L SG - TELLY. PATIENT C/O INCRASED R LBP WITH LUMBAR ROM TESTING INTO FLEXION AND KYLE SG'ING BUT NOT SO MUCH INTO EXTENSION. Core strength: POOR. Palpation: NO ACUTE THORACIC, LUMBAR, PELVIC OR HIP TENDERNESS. TREATMENT: NEUROMUSCULAR REEDUCATION - RETRAINING OF MVMT AND POSTURE FOR SITTING, LYING AND STANDING ACTIVITIES. OTHER: PATIENT IS UNABLE TO COMFORTABLE IN ANY POSITION SITTING, STANDING, WALKING, LYING DURING PT EVAL AND IS TEARFUL OFF AND ON DURING SESSION. THIS PT CALLED DR. GIMENEZ'S OFFICE AND SPOKE TO HIS NURSE DAVE TO REPORT PATIENTS PAIN BEHAVIOR DURING ASSESSMENT AND TO QUESTION IF MRI MIGHT BE APPROPRIATE. PATIENT UNABLE TO TOLERATE PT DUE TO HIGH PAIN LEVELS TODAY. SHE REPORTS PATIENT MISSED AN ABBEY'T WITH THEM AT 8:20 THIS AM BUT PATIENT REPORTS THAT ABBEY'T WAS SUPPOSED TO BE CANCELLED. DAVE STATES THAT LINE CONTROLLER RESPONDED TO PATIENTS EMAIL ABOUT MEDICATION CHANGES THAT SHE CAN MAKE. THIS PT COMMUNICATED SO TO PATIENT AND SHE WILL CHECK EMAIL AND CONTACT DR. GIMENEZ'S OFFICE IF PAIN DOES NOT GET BETTER OR WORSENS. - Balance/Special Test Scores Oswestry Low Back Score: 35 - Goals Goal 1:: DECREASE C/O RIGHT LOW BACK PAIN AND THIGH SX'S. Goal Time Frame: 4-6 Weeks Goal 2:: IMPROVE LIFTING, WALKING, SITTING, STANDING, SLEEP, SOCIAL LIFE, TRAVEL AND WORK/HOMEMAKING FUNCTION Goal Time Frame: 4-6 Weeks Goal 3:: INSTRUCT IN PROPHYLAXIS Goal Time Frame: 4-6 Weeks - Anticipated Interventions Patient/Client Instruction: Educate patient on: Condition, Plan of Care, Risk Factors For the Purpose of:: To improve self management Therapeutic Exercise to Include: Strength training, Body mechanics, Postural training, Flexibilty training, Neuromotor development, In an aquatic setting, Dynamic Lumbar Stabilization For the Purpose of:: To decrease pain, To increase ROM, To improve muscle performance and motor function, To increase tolerance to activity/condition/position, To improve ability of physical actions for home/community/work/leisure Manual Therapy Techniques to Include: Soft tissue mobilization For the Purpose of:: To decrease pain, To improve nutrient delivery to tissue TENS: Yes IF ES: Yes Cryotherapy (ice pack, ice massage): Yes Thermo therapy (hot pack): Yes Ultrasound (thermal/non thermal): Yes For the Purpose of:: To decrease pain, To improve nutrient delivery to tissue Thank you for the opportunity to evaluate your patient. For Medicare and Medicare HMO plans, please review the plan of care and approve it. It will need to be FAXED BACK to us at [phone] for Medicare purposes. For Medicare only, by signing this I certify the plan of care. Please let me know if there are questions or concerns regarding this plan of care. Physician Signature: Date:
--- NOTE | 2022-09-03 11:20 | HP.PT.NRP ---
CRISTINA SPRING was seen in my office for initial evaluation on 05/12/22. The following Plan of Care was established for this patient: Initial Frequency: 2-3x /Week Initial Duration: 4-6 Weeks Patient/Client Instruction: Educate patient on: Condition, Plan of Care, Risk Factors For the Purpose of:: To improve self management Therapeutic Exercise to Include: Strength training, Body mechanics, Postural training, Flexibilty training, Neuromotor development, In an aquatic setting, Dynamic Lumbar Stabilization For the Purpose of:: To decrease pain, To increase ROM, To improve muscle performance and motor function, To increase tolerance to activity/condition/position, To improve ability of physical actions for home/community/work/leisure Manual Therapy Techniques to Include: Soft tissue mobilization For the Purpose of:: To decrease pain, To improve nutrient delivery to tissue TENS: Yes IF ES: Yes Cryotherapy (ice pack, ice massage): Yes Thermo therapy (hot pack): Yes Ultrasound (thermal/non thermal): Yes For the Purpose of:: To decrease pain, To improve nutrient delivery to tissue This patient was last seen in our office 08/03/22. Pertinent comments regarding their Physical therapy will appear below: This patient has not returned to Physical Therapy and is appropriate to return to MD for further follow-up as needed. At this point I will be discontinuing this patient from physical therapy. I would be happy to see this patient again in the future if found appropriate by the physician. Thank you! Esperanza Coombs, PT, Cert MDT Balance/Gait/Functional tests - Balance/Special Test Scores Oswestry Low Back Score: 35
== END 2022-08-03 19:00 | disposition home or self-care (01) ==
LOC: PT 14:00
PROVIDERS: PCP Registered Nurse; Referring Provider Family Medicine; Visit Provider Family Medicine
DX: M54.16 Radiculopathy, lumbar region (principal); M54.6 Pain in thoracic spine
CPT/HCPCS: 97014; 97035; 97110; 97140; 97162; 97530; G0283

== ENCOUNTER 2022-09-03 08:39 | Day surgery (SDC) | payer OTHER, SELFPAY ==
[2022-09-03 09:49] VITALS: BP 132/66; PULSE 81; RESP 16; TEMP 37.2; O2SAT 94; BMI 39.9
[2022-09-03 09:51] LABS: Internal QC Validated? YES +Cl - CLEAR BKGD; Pregnancy, Urine Negative Negative
[2022-09-03] MEDS: Lactated Ringers 1,000 ML 15 ML IV (10:02)
[2022-09-03 11:46] VITALS: BP 130/71; BP 132/66; PULSE 94; RESP 16; TEMP 37; O2SAT 94
--- NOTE | 2022-09-03 11:57 | DCINST_ITS ---
Discharge Instructions Diet Discharge Diet: No restrictions Activity Discharge Activity: Return to Normal Activity May resume sexual activity in: No Restrictions Dressing / Incision Call your doctor if you observe: Fever of 101 or Higher, Inability to urinate and Inability to have a bowel movement Follow Up Care Please Follow Up With: Hayley Segundo MD When: 3-4 weeks, call for appointment Test Results: Test results from this visit will be discussed in further detail at your follow- up appointment, if applicable. Discharge Plan Admission Attending Provider: Hayley Segundo Primary Care Provider: Quynh Sneed NP Discharge Orders/Prescriptions Prescriptions: Continued trospium 60 mg capsule,extended release 24hr 60 mg PO DAILY pantoprazole 40 mg tablet,delayed release (DR/EC) 40 mg PO QHS Label Comments: take 1 tablet by mouth once daily famotidine 20 mg tablet 20 mg PO DAILY Label Comments: take 1 tablet by mouth twice a day estradiol 10 mcg tablet 10 mcg vaginal PRN PRN (Reason: check) Label Comments: insert 1 tablet vaginally two times a week levothyroxine 100 MCG tablet 125 mcg PO DAILY dextroamphetamine-amphetamine 20 MG tablet 20 mg PO BID bupropion HCl 200 MG tablet 200 mg PO DAILY aripiprazole 30 MG tablet 20 mg PO QHS citalopram 20 MG tablet 40 mg PO DAILY Referrals / Follow Up: Quynh Sneed NP, REGISTERED OCCUPATIONAL THERAPIST-C [Primary Care Provider] - Disposition Disposition (needs filled in before D/C Order can be placed): Home, Self Care
[2022-09-03 12:00] VITALS: BP 126/78; BP 132/66; PULSE 87; RESP 16; O2SAT 94
[2022-09-03 12:15] VITALS: BP 129/74; BP 132/66; PULSE 86; RESP 16; TEMP 37.1; O2SAT 94
[2022-09-03 13:31] VITALS: BP 119/77; BP 132/66; PULSE 88; RESP 16; TEMP 36.6; O2SAT 93
--- NOTE | 2022-09-03 13:31 | OP.PCM_ITS ---
Report of Operation Date of Procedure: 09/03/22 Pre-Operative Diagnosis: Chronic bladder pain, urinary tract infection, urinary frequency Post-Operative Diagnosis: Same Surgery/Procedure Performed:: Cystourethroscopy Surgeon: Hayley Segundo Type of Anesthesia: General Description of Procedure: The patient is a 52-year-old female with chronic bladder pain and recurrent urinary tract infections as well as urinary frequency. She presents for evaluation of the urinary bladder under anesthesia. Informed consent was obtained. The patient was taken to the operating room and placed on the oper ating room table. Anesthesia monitored the head, neck, airway, IV access and vital signs throughout the case. Once anesthesia was appropriately administered, the patient was placed into dorsal lithotomy position was prepped and draped in usual sterile fashion. The cystoscope was inserted through the urethra under direct visualization into the urinary bladder. The bladder mucosa in its entirety was visualized finding no evidence of erythema, mass or abnormality. The bladder was filled to capacity and measured at approximately 250 cc. At this time the patient's bladder was emptied and the cystoscope was removed. She was awakened and taken to the recovery room in good condition. There were no complications during this procedure. Grafts/Implants Used: None Complications None Admit VTE Documentation VTE Present on Admission: Yes VTE Mechan Device Prophylaxis: SCD's VTE Pharm Prophylaxis ordered?: No Reason prophylaxis not ordered:: Treatment Not Indicated
== END 2022-09-03 13:37 | disposition home or self-care (01) ==
LOC: SDC 08:40 → AC 08:41
PROVIDERS: Anesthesiology; PCP Registered Nurse; Referring Provider Urology; Visit Provider Urology
PROC: 0T7B7ZZ Dilation of Bladder, Via Natural or Artificial Opening (ICD-10-PCS; CPT 52000; principal; 2022-09-03 10:45)
DX: R39.82 Chronic bladder pain (principal); R35.0 Frequency of micturition; N39.0 Urinary tract infection, site not specified; N95.2 Postmenopausal atrophic vaginitis; N39.41 Urge incontinence; G47.419 Narcolepsy without cataplexy; I10 Essential (primary) hypertension; E03.9 Hypothyroidism, unspecified; Z87.891 Personal history of nicotine dependence; Z79.899 Other long term (current) drug therapy
CPT/HCPCS: 52000; 81025; J7120; J0744; J2405

== ENCOUNTER 2022-10-23 12:49 | Outpatient (RCR) | payer OTHER, SELFPAY | END 2022-10-23 19:00 | disposition home or self-care (01) | LOC: PT 12:49 | PROVIDERS: PCP Registered Nurse; Referring Provider Urology; Visit Provider Urology | DX: R10.2 Pelvic and perineal pain (principal); M54.9 Dorsalgia, unspecified ==

== ENCOUNTER → 2023-01-21 | Outpatient (CLI) | payer OTHER, SELFPAY ==
--- NOTE | 2023-01-21 16:16 | RAD_ITS ---
INDICATION: trip over dog EXAMINATION/TECHNIQUE: X-RAY - RIGHT XR Foot 3 VIEWS COMPARISON: FINDINGS: SOFT TISSUES: No soft tissue swelling or gas. No radiopaque foreign body. BONES/JOINTS: No acute fracture or subluxation.. Normal alignment. Preservation of the joint space.. No sclerotic or destructive changes observed. RAD/Foot min 3 Views IMPRESSION: No acute bony injury. Electronically Signed: Art Crawford DO at 16:41 EDT ,
--- NOTE | 2023-01-21 16:18 | RAD_ITS ---
INDICATION: ankle inj EXAMINATION/TECHNIQUE: X-RAY - RIGHT XR Ankle 3 VIEWS COMPARISON: FINDINGS: SOFT TISSUES: No soft tissue swelling or gas. No radiopaque foreign body. BONES/JOINTS: No acute fracture or subluxation.. Normal alignment. Preservation of the joint space.. No sclerotic or destructive changes observed. RAD/Ankle min 3 Views IMPRESSION: No acute bony injury. Electronically Signed: Art Crawford DO at 17:12 EDT ,
== END | disposition home or self-care (01) ==
LOC: MTRAD 16:15
PROVIDERS: PCP Registered Nurse; Visit Provider Physician Assistant Surgical
DX: S96.911A Strain of unspecified muscle and tendon at ankle and foot level, right foot, initial encounter (principal); W01.0XXA Fall on same level from slipping, tripping and stumbling without subsequent striking against object, initial encounter
CPT/HCPCS: 73610; 73630

== ENCOUNTER → 2023-06-09 | Outpatient (CLI) | payer OTHER, SELFPAY ==
--- NOTE | 2023-06-09 10:30 | MRI_ITS ---
STUDY: MRI LEFT KNEE REASON FOR EXAM: Female, 53 years old. Pain. Assess prior lateral meniscal tear. TECHNIQUE: Standardized fat and water weighted pulse sequences were obtained in all 3 orthogonal planes. COMPARISON: Left knee MRI dated 01/24/2018. FINDINGS: There is a new partial radial tear of the posterior horn of the medial meniscus (sagittal PD series 3 images 18-20). Normal hyaline cartilage of the medial femorotibial compartment. Normal medial femoral condyle and tibial plateau. There is a new minimal grade I MCL sprain with periligamentous edema (coronal T2 series 6 images 13-14). Normal distal semimembranosus, gracilis and semitendinosus tendons. There is a persistent complex tear of the anterior horn of the lateral meniscus with a persistent multiseptated parameniscal cyst. Normal hyaline cartilage of the lateral femorotibial compartment. Normal lateral femoral condyle and tibial plateau. Normal proximal tibiofibular articulation. Normal lateral collateral ( fibular ) ligament. Normal popliteus tendon. Normal biceps femoris tendon. There is a small anterior cruciate ligament cyst (T2 coronal images 12, 13) without focal discontinuity ligament. Normal posterior cruciate ligament (PCL). Congruent patellofemoral compartment. Normal hyaline cartilage of the patellofemoral compartment. Normal medial and lateral patellar retinaculum. Normal quadriceps tendon. Normal patellar tendon. Normal Hoffa''s fat pad. There is an unchanged small joint effusion. There is an unchanged tiny popliteal cyst. The otherwise visualized osseous structures are unremarkable. MRI/Lower Ext Joint Only (Routine) IMPRESSION: New partial radial tear of the posterior horn of the medial meniscus. New minimal grade I MCL sprain. Persistent complex tear of the anterior horn of the lateral meniscus with a persistent multiseptated parameniscal cyst. Unchanged small joint effusion with unchanged tiny popliteal cyst. Electronically Signed: Peter Carter MD at 12:34 EST ,
== END | disposition home or self-care (01) ==
LOC: MRI 10:20
PROVIDERS: PCP Registered Nurse; Referring Provider Orthopaedic Surgery Sports Medicine; Visit Provider Orthopaedic Surgery Sports Medicine
DX: S83.242A Other tear of medial meniscus, current injury, left knee, initial encounter (principal); S83.272A Complex tear of lateral meniscus, current injury, left knee, initial encounter; S83.412A Sprain of medial collateral ligament of left knee, initial encounter; X58.XXXA Exposure to other specified factors, initial encounter
CPT/HCPCS: 73721

== ENCOUNTER → 2023-09-21 | Outpatient (CLI) | payer OTHER, SELFPAY ==
[2023-09-21 21:22] LABS: Mucous, Urine 0 SEEN /hpf (<or=2+); Red Blood Cells-Urine 0 SEEN /hpf (0-5)
[2023-09-21 21:49] LABS: Color, Urine Yellow (Yellow); Glucose, Dipstick Normal (Normal); Ketone-Dipstick Negative (Negative); Leukocyte Esterase-Dipstick 100 /ul (Negative); Nitrite-Dipstick Negative (Negative); Occult Blood-Urine Negative /ul (Negative); Protein-Dipstick Negative (Negative); Urine Bilirubin Dipstick Negative (Negative); Urine Clarity Clear (Clear); Urine Urobilinogen Normal (Normal)
[2023-09-21 22:00] LABS: Bacteria 1+ /hpf (None Seen); Squamous Epithelial Cells - UA 0-5 SEEN /hpf (5-10); White Blood Cells 5-10 SEEN /hpf (0-5)
== END | disposition home or self-care (01) ==
PROVIDERS: PCP Registered Nurse; Visit Provider Physician Assistant
DX: M54.9 Dorsalgia, unspecified (principal)
CPT/HCPCS: 81001; 87086; 87088; 87186

== ENCOUNTER → 2024-03-14 | Outpatient (CLI) | payer OTHER, SELFPAY ==
[2024-03-14 10:43] LABS: Color, Urine Yellow (Yellow); Glucose, Dipstick Normal (Normal); Ketone-Dipstick Negative (Negative); Leukocyte Esterase-Dipstick 25 /ul (Negative); Nitrite-Dipstick Negative (Negative); Occult Blood-Urine 25 /ul (Negative); Protein-Dipstick 15 mg/dl (Negative); Urine Bilirubin Dipstick Negative (Negative); Urine Clarity Sl. Cloudy (Clear); Urine Urobilinogen 1 mg/dl (Normal)
== END | disposition home or self-care (01) ==
LOC: MTLAB 08:47
PROVIDERS: PCP Registered Nurse; Referring Provider Urology; Visit Provider Urology
DX: N39.0 Urinary tract infection, site not specified (principal); R30.0 Dysuria
CPT/HCPCS: 81002; 87086; 87088

== ENCOUNTER → 2024-04-25 | Outpatient (CLI) | payer OTHER, SELFPAY | END | disposition home or self-care (01) | LOC: LABSPEC 15:00 | PROVIDERS: PCP Registered Nurse; Referring Provider Otolaryngology; Visit Provider Otolaryngology | DX: J02.9 Acute pharyngitis, unspecified (principal) | CPT/HCPCS: 87070 ==

== ENCOUNTER 2024-08-02 11:00 | Outpatient (RCR) | payer OTHER, SELFPAY ==
--- NOTE | 2024-07-03 15:26 | HP.PTEVAL ---
Patient's Visit Information Visit Information Visit Information: CRISTNIA SPRING is a 54 year old F referred to Physical Therapy by Dr. Domo Venegas MD with a diagnosis of BACK PAIN. Date of Evaluation: 07/03/24 Physical Therapist: Esperanza Coombs PT, Cert MDT Visit Plan Frequency: 2-3x /Week Duration: 4-6 Weeks Plan: POSTURE CORRECTION/STRENGTHENING, INSTRUCTION IN APPROPRIATE BODY MECHANICS AND ACTIVITY MODIFICATIONS. DLS STARTING WITH A NEUTRAL SPINE PROGRESSING ROM TOLERATED WITH MCKENZIES EXTENSION PRINCIPAL. KYLE LE ROM, STRETCHING AND STRENGTHENING. HEP INSTRUCTION. US, E-STIM AND MH NEEDED FOR PAIN CONTROL. 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 Present symptoms: R LOW BACK PAIN. DID HAVE R THIGH ACHING BUT THAT HAS RESOLVED. Present since: THIS EPISODE STARTED ABOUT 3 WKS AGO Pain Scale: WORST 5/10, LEAST 1/10 Currently: 1/10 Is it getting better, worse or staying the same: GETTING BETTER Commenced as a result of: PROLONGED/EXCESSIVE SITTING DURING EXCESSIVE COLD/SNOW - LEARNED HOW TO FINGER DION. Symptoms at onset: R LOW BACK AND THIGH PAIN Worse: PROLONGED SITTING, BENDING, KNEELING, STOOPING, STANDING TOO MUCH, WALKING TOO MUCH, DOING MORE THAN 2 MASSAGES A DAY. Better: HEAT, MELOXICAM, CHANGE OF POSITION, PRESS UPS Disturbed sleep: NO Previous history/Previous treatment: KHANH'S, PHYSICAL THERAPY, MASSAGE. NO BACK SURGERY. LAST KHANH WAS SEPTEMBER 2023 WITH BENEFIT - HELPED RESOLVE LEG PAIN. Treatment this episode: MELOXICAN. Coughing/sneezing/straining: NEGATIVE FOR INCREASED BACK PAIN. Gait: TIME AND DISTANCE LIMITED. NO AD'S. CURRENTLY A LITTLE SLOWER AND MORE GUARDED THAN NORMAL. Bowel or Bladder Dysfunction: NO Accidents: NO Unexplained weight loss: NO Imaging: NONE RECENT. PMH/Recent major surgery: HYPOTHYROIDISM, NIDDM Objective Objective: Sitting/Standing Posture: REDUCED LUMBAR LORDOSIS. NO RELEVENT LATERAL LUMBAR SHIFT. Other Observations: THIS PATIENT AMBULATES INDEP'LY INTO PT TODAY WITH FAIR CADANCE AND NO AD'S. GAIT IS GUARDED WITH DECREASED TRUNK ROTATION AND ARM SWING. SHE IS ABLE TO INDEP'LY TRANSFER FROM SIT TO STAND WITHOUT UE ASSIST WITH DIFFICUYLTY AND WITH C/O OF INCREASED R LBP. Sensory deficit: KYLE LE LIGHT TOUCH SENSATION IS GROSSLY INTACT AND SYMMETRICAL ROM deficit: TIGHT KYLE HS AND GASTROC-SOLEUS COMPLEX'S. Motor deficit: KYLE LE'S 5/5 WITH MMT'ING EXCEPT R HIP 4-/5 AND L 4/5. Reflexes: KYLE LE'S 2+ Dural Signs: NEGATIVE KYLE LE'S. Lumbar mvmt loss: flex - MOD - INCREASES - NW ext - MOD - DECREASES - NW R SG - MOD - INCREASES - NW L SG - MOD - INCREASES - NW Core strength: POOR Palpation: INCREASED MUSCLE TONE KYLE LOWER THORACIC AND LUMBAR PARASPINALS. TENDERNESS IN R SI JT REGION. Balance/Special Test Scores Oswestry Low Back Score: 13 Goals Goal 1:: DECREASE C/O BACK PAIN BY AT LEAST 75% TO EASE ADL'S. Goal Time Frame: 4-6 Weeks Goal 2:: IMPROVE LIFTING, WALKING, SITTING, STANDING, TRAVEL, WORK AND HOMEMAKING FUNCTION Goal Time Frame: 4-6 Weeks Goal 3:: INSTRUCT IN PROPHYLAXIS Goal Time Frame: 4-6 Weeks Rehabilitation Potential Physical Therapy Diagnosis: CORE AND KYLE HIP WEAKNESS AND STIFFNESS. Rehabilitation Potential: Good Anticipated Interventions Patient/Client Instruction: Educate patient on: Condition, Plan of Care and Risk Factors For the Purpose of:: To improve self management Therapeutic Exercise to Include: Strength training, Body mechanics, Postural training, Flexibilty training, Neuromotor development, Dynamic Lumbar Stabilization and Brodie Exercises For the Purpose of:: To decrease pain, To improve muscle performance and motor function, To increase tolerance to activity/condition/position and To improve ability of physical actions for home/community/work/leisure TENS: Yes IF ES: Yes Thermo therapy (hot pack): Yes Ultrasound (thermal/non thermal): Yes For the Purpose of:: To decrease pain and To improve nutrient delivery to tissue Text: Thank you for the opportunity to evaluate your patient. For Medicare and Medicare HMO plans, please review the plan of care and approve it. It will need to be FAXED BACK to us at [phone] for Medicare purposes. For Medicare only, by signing this I certify the plan of care. Please let me know if there are questions or concerns regarding this plan of care. Physician Signature: Date:
--- NOTE | 2024-10-02 15:38 | HP.PT.NRP ---
Patient Information Patient Information: CRISTINA SPRING was seen in my office for initial evaluation on 07/03/24. The following Plan of Care was established for this patient: POC Established Initial Frequency: 2-3x /Week Initial Duration: 4-6 Weeks Anticipated Interventions Patient/Client Instruction: Educate patient on: Condition, Plan of Care and Risk Factors For the Purpose of:: To improve self management Therapeutic Exercise to Include: Strength training, Body mechanics, Postural training, Flexibilty training, Neuromotor development, Dynamic Lumbar Stabilization and Brodie Exercises For the Purpose of:: To decrease pain, To improve muscle performance and motor function, To increase tolerance to activity/condition/position and To improve ability of physical actions for home/community/work/leisure TENS: Yes IF ES: Yes Thermo therapy (hot pack): Yes Ultrasound (thermal/non thermal): Yes For the Purpose of:: To decrease pain and To improve nutrient delivery to tissue Last Seen Last Seen: This patient was last seen in our office 08/02/24. Pertinent comments regarding their Physical therapy will appear below: It has been my pleasure to see this patient for a total of 7 visits. This patient has not returned to Physical Therapy for more visits and is appropriate to return to MD for further follow-up as needed. At this point I will be discontinuing this patient from physical therapy. I would be happy to see this patient again in the future if found appropriate by the physician. Thank you! Esperanza Coombs, PT, Cert MDT Balance/Gait/Functional tests Balance/Special Test Scores Oswestry Low Back Score: 13
== END 2024-08-02 19:00 | disposition home or self-care (01) ==
LOC: PT 11:00
PROVIDERS: PCP Registered Nurse; Referring Provider Anesthesiology Pain Medicine; Visit Provider Anesthesiology Pain Medicine
DX: M54.9 Dorsalgia, unspecified (principal)
CPT/HCPCS: 97035; 97110; 97162; 97530

== ENCOUNTER → 2024-08-16 | Outpatient (CLI) | payer OTHER, SELFPAY ==
--- NOTE | 2024-08-16 14:56 | VDLE_ITS ---
Reason For Study Reason For Study: RLE PAin RIGHT LEFT GSV is normal. FV is compressible, spontaneous, phasic, competent CFV is compressible, spontaneous, phasic, competent and demonstrates normal augmentation. and demonstrates normal augmentation. FV is compressible, spontaneous, phasic, competent and demonstrates normal augmentation. POP V is compressible, spontaneous, phasic, competent and demonstrates normal augmentation. T/P Trunk is compressible. PTV is compressible. RT PerV is compressible. Nonvascularized hypoechoic area measuring approximately 1.98cm x 0.90cm noted in Rt Pop Fossa. Procedure This is a venous duplex using B-mode, color flow and spectral Doppler. Exam performed in department. The exam was diagnostic. A preliminary report was called and/or faxed to Amina Jenkins / Kecia Riggs. VL/Venous Duplex US, Unilateral Interpretation Summary Deep veins of the right lower extremity are patent and compressible segmentally . There is no evidence of right lower extremity deep vein thrombosis. The right great saphenous vein appears patent a nd compressible segmentally. Nonvascularized hypoechoic area measuring approximately 1.98cm x 0.90cm noted i n right popliteal fossa. Ordering Physician: Amina Jenkins Referring Physician: Naren Beauchamp Performed By: Bacilio Beckham RVT
== END | disposition home or self-care (01) ==
LOC: CVS 14:47
PROVIDERS: PCP Registered Nurse; Referring Provider Nurse Practitioner Family; Visit Provider Nurse Practitioner Family
DX: I70.92 Chronic total occlusion of artery of the extremities (principal); M79.661 Pain in right lower leg; M79.89 Other specified soft tissue disorders
CPT/HCPCS: 93971

== ENCOUNTER → 2024-11-06 | Outpatient (CLI) | payer OTHER, SELFPAY ==
--- NOTE | 2024-11-06 11:06 | MRI_ITS ---
PROCEDURE: LOWER EXT JOINT ONLY (ROUTINE) 11/06/2024 REASON FOR EXAM: ACUTE AGGRAVATION OF MCL SPRAIN AND MENISCAL ELISEO TECHNIQUE: MRI of the left knee. Multiplanar and multisequence images were obtained without IV contrast administration. COMPARISON: COMPARISON : Left knee MRI on 06/09/2019 FINDINGS: Bone Marrow: There is a punctate focus of edema present in the subchondral medial tibial plateau. Effusion: Small knee joint effusion. 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 Ligaments and Tendons: There is increased signal within the ACL, which is indistinct though with a few intact fibers identified. The PCL is unremarkable. There is mild edema surrounding the intact MCL. The lateral collateral ligamentous complex is unremarkable. The popliteus tendon is unremarkable. Menisci: There is a complex tear of the anterior horn of the lateral meniscus with adjacent parameniscal cyst, unchanged. Radial tear at the posterior horn of the medial meniscus is also unchanged. There is intermediate signal present within the body and posterior horn of the medial meniscus, without definite extension to the articular surface. Cartilage: No full-thickness cartilage defect. MRI/Lower Ext Joint Only (Routine) IMPRESSION: 1. Low-grade MCL sprain. 2. Indistinct and edematous appearance of the ACL, which could be the result o f sprain or partial-thickness tear. Correlate for intact endpoint on exam. 3. Unchanged meniscal tears as detailed above. There is degenerative signal w ithin the medial meniscus. 4. Small knee joint effusion. 5. Reynaga's cyst. Reading Location: [facility]
== END | disposition home or self-care (01) ==
LOC: MRI 11:00
PROVIDERS: PCP Registered Nurse; Referring Provider Nurse Practitioner Family; Visit Provider Nurse Practitioner Family
DX: S83.412A Sprain of medial collateral ligament of left knee, initial encounter (principal); M23.92 Unspecified internal derangement of left knee; X58.XXXA Exposure to other specified factors, initial encounter
CPT/HCPCS: 73721

== ENCOUNTER 2024-12-25 12:00 | Outpatient (RCR) | payer OTHER, SELFPAY ==
--- NOTE | 2024-10-25 16:13 | HP.PTEVAL_ITS ---
Patient's Visit Information Visit Information Visit Information: CRISTINA SPRING is a 54 year old F referred to Physical Therapy by VALENTINA Pak with a diagnosis of MCL sprain, L meniscus tear, OA B. Date of Evaluation: 10/25/24 Physical Therapist: SARAH Seth Visit Plan Frequency: 2x /Week Duration: 2 Months Plan: 2X/ week for 3-8 weeks for L knee AROM, stretching of HS, Quad with foam rolling, hip and knee strength, gait training, with HEP Subjective Subjective: Pt is not sure how she injured her knee other than stepping the wron g way Stairs are an issue at times B knees have a meniscus tear already and thinks that she tore it again. She is wearing a hinge brace and has pain medially and anteriorly as well MRI November 20 Pain L knee pain: Pain Intensity (Out of 10): 3 Objective Objective: Gait: Walks with decrease stance time on the L LE Knee AROM: R knee 0-116 L Knee 0-104 (knee ext is limited until after QS) Knee MMT: R hip abd 15# and L 7.4 R hip ext 12.3 and L 4.7 R knee ext 16 and L 6.3 R knee flex 11.4 and L 5.7 Palpation: tender along the Quad tendon on the L, MCL on the L, medial joint line on the L also Balance/Special Test Scores Lower Extremity Functional Score: 35 Goals Goal 1:: I HEP Goal Time Frame: 6-8 Weeks Goal 2:: Increase L knee AROM (at the time of the eval: R knee 0-116 L Knee 0-104 (knee ext is limited until after QS) Goal Time Frame: 6-8 Weeks Goal 3:: Increase LE strength (at the time of the eval: Knee MMT: R hip abd 15# and L 7.4 R hip ext 12.3 and L 4.7 R knee ext 16 and L 6.3 R knee flex 11.4 and L 5.7) Goal Time Frame: 6-8 Weeks Goal 4:: Be able to walk with more equal stance time Goal Time Frame: 6-8 Weeks Rehabilitation Potential Rehabilitation Potential: Good Anticipated Interventions Patient/Client Instruction: Educate patient on: Condition and Plan of Care For the Purpose of:: To decrease pain, To decrease swelling/inflammation, To increase ROM, To improve nutrient delivery to tissue, To improve muscle performance and motor function, To improve ability to perform ADL's, To increase tolerance to activity/condition/position, To improve performance and independence with ADL's, To decrease level of supervision to perform tasks, To improve ability of physical actions for home/community/work/leisure, To improve gait and locomotor functions, To improve health of tissue, To decrease soft tissue restriction and To increase flexibility/ROM Therapeutic Exercise to Include: Strength training, Flexibilty training, Gait and locomotor training, Neuromotor development, Passive ROM, Active ROM and Dynamic Lumbar Stabilization For the Purpose of:: To decrease pain, To decrease swelling/inflammation, To increase ROM, To improve nutrient delivery to tissue, To improve muscle performance and motor function, To improve ability to perform ADL's, To increase tolerance to activity/condition/position, To improve ability of physical actions for home/community/work/leisure, To improve gait and locomotor functions, To improve health of tissue, To decrease soft tissue restriction and To increase flexibility/ROM Functional Training to Include: Gait training For the Purpose of:: To improve gait and locomotor functions Text: Thank you for the opportunity to evaluate your patient. For Medicare and Medicare HMO plans, please review the plan of care and approve it. It will need to be FAXED BACK to us at [phone] for Medicare purposes. For Medicare only, by signing this I certify the plan of care. Please let me know if there are questions or concerns regarding this plan of care. Physician Signature: Date:
--- NOTE | 2025-01-10 16:56 | HP.PT.NRP ---
Patient Information Patient Information: CRISTINA SPRING was seen in my office for initial evaluation on 10/25/24. The following Plan of Care was established for this patient: POC Established Initial Frequency: 2x /Week Initial Duration: 2 Months Anticipated Interventions Patient/Client Instruction: Educate patient on: Condition and Plan of Care For the Purpose of:: To decrease pain, To decrease swelling/inflammation, To increase ROM, To improve nutrient delivery to tissue, To improve muscle performance and motor function, To improve ability to perform ADL's, To increase tolerance to activity/condition/position, To improve performance and independence with ADL's, To decrease level of supervision to perform tasks, To improve ability of physical actions for home/community/work/leisure, To improve gait and locomotor functions, To improve health of tissue, To decrease soft tissue restriction and To increase flexibility/ROM Therapeutic Exercise to Include: Strength training, Flexibilty training, Gait and locomotor training, Neuromotor development, Passive ROM, Active ROM and Dynamic Lumbar Stabilization For the Purpose of:: To decrease pain, To decrease swelling/inflammation, To increase ROM, To improve nutrient delivery to tissue, To improve muscle performance and motor function, To improve ability to perform ADL's, To increase tolerance to activity/condition/position, To improve ability of physical actions for home/community/work/leisure, To improve gait and locomotor functions, To improve health of tissue, To decrease soft tissue restriction and To increase flexibility/ROM Functional Training to Include: Gait training For the Purpose of:: To improve gait and locomotor functions Last Seen Last Seen: This patient was last seen in our office 12/25/24. Pertinent comments regarding their Physical therapy will appear below: [facility] PT as pt will be having surgery in March At this point I will be discontinuing this patient from physical therapy. I would be happy to see this patient again in the future if found appropriate by the physician. Thank you! Mady Ruvalcaba, SARAH Balance/Gait/Functional tests Balance/Special Test Scores Lower Extremity Functional Score: 50
== END 2024-12-25 19:00 | disposition home or self-care (01) ==
LOC: PT 12:00
PROVIDERS: PCP Registered Nurse; Referring Provider Nurse Practitioner Family; Visit Provider Nurse Practitioner Family
DX: S83.412D Sprain of medial collateral ligament of left knee, subsequent encounter (principal); S83.282D Other tear of lateral meniscus, current injury, left knee, subsequent encounter; M79.661 Pain in right lower leg; M79.89 Other specified soft tissue disorders; M17.0 Bilateral primary osteoarthritis of knee
CPT/HCPCS: 97110; 97161; 97530

== ENCOUNTER 2025-03-13 05:53 | Day surgery (SDC) | payer OTHER, SELFPAY ==
[2025-03-13] VITALS (10 sets, daily range): BP systolic 119–144; BP diastolic 65–75; PULSE 78–98; RESP 14–18; TEMP 35.9–37.3; O2SAT 92–97; BMI 39.1
[2025-03-13] MEDS: Lactated Ringers 1,000 ML 15 ML IV ×2 (06:43→09:04)
--- NOTE | 2025-03-13 06:45 | PCM.PRE.AN2 ---
ASA Classification* ASA Classification ASA Classification: 2 Assessment & Plan Anesthesia* Anesthesia Assessment Anesthesia Assessment: Discussed sedation and/or anesthesia options, risks, benefits, and alternatives with patient/parents/legal guardian/POA. Questions invited. The patient/parents/legal guardian/POA seems to understand and agrees to proceed with anesthesia plan. Reviewed the physical assessment, medical history, allergy history and patient home medications list prior to surgery/procedure/anesthetic and documented any changes. Performed airway and anesthesia risk assessments. Anesthesia Type Anesthesia Type: General and Block (If requested by Surgeon, consented) Anesthesia Focused Assessment* Temperature: 96.7 F Pulse Rate: 78 Blood Pressure: 139/75 Respiratory Rate: 18 Pulse Ox: 96 Airway Assessment Mouth opens: >3 cm Mallampati Score: II Labs Anesthesia Preop lab: CBC WBC, (4.4-11.0) 9.7 K/mm3 05/25/22, 16:00 RBC, (4.2-5.4) 4.74 M/mm3 05/25/22, 16:00 Hgb, (12.0-15.0) 13.6 g/dL 05/25/22, 16:00 Hct, (37-47) 41.4 % 05/25/22, 16:00 Plt Count, (150-450) 294 K/mm3 05/25/22, 16:00 CHEMISTRY Potassium, (3.5-5.1) 4.0 mmol/L 05/25/22, 16:00 Sodium, (136-145) 141 mmol/L 05/25/22, 16:00 BUN, (7-18) 13 mg/dL 05/25/22, 16:00 Creatinine, (0.55-1.02) 1.01 mg/dL 05/25/22, 16:00 Glucose, (74-106) 101 mg/dL 05/25/22, 16:00 COAG Urine Test Negative Negative 09/03/22, 09:30 Tst Clinic Negative 10/13/18, 08:32 Pre-Assessment Diagnosis/Proposed Procedure Planned Operative Procedure(s): (L) Left knee Arthroscopy, partial medial and lateral meniscectomy, surgery as indicated Anesthesia History 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 When Was Last Pacemaker Check QUESTION #4 FULL TEXT: You/Your Family Experience fever (hyperthermia) with Anesthesia Last Oral Intake Last Oral intake: Last Oral Intake NPO since 21:30 03/13/25 06:27 Meds taken in AM with sips of No 03/13/25 06:27 water? Meds patient instructed to take am of surgery PONV PONV - casting machine operator helper: PONV - casting machine operator helper Female Yes 02/27/25 15:09 HX of Motion Sickness Yes 02/27/25 15:09 HX of N/V After Surgery No 02/27/25 15:09 Non-Smoker Yes 02/27/25 15:09 Duration of Surgery greater Yes 02/27/25 15:09 than 60 minutes Number of Risk Factors 4 02/27/25 15:09 PONV Score Severe Risk 02/27/25 15:09 Height & Weight Height & Weight: Anesthesia: Height & Weight Height 5 ft 6 in 03/13/25 06:27 Weight: 110 kg 03/13/25 06:27 Body Mass Index (BMI) 39.1 03/13/25 06:27 Respiratory Assessment Respiratory Assessment - casting machine operator helper: Respiratory Tract Infection Hx - casting machine operator helper Hx Respiratory Tract Infection No 02/27/25 15:09 STOP Sleep Apnea STOP Sleep Apnea - casting machine operator helper: STOP Sleep Apnea - casting machine operator helper Hx Hypertension No 02/27/25 15:09 Hx Sleep Apnea Yes 02/27/25 15:09 CPAP Yes 02/27/25 15:09 BIPAP No 02/27/25 15:09 Do you snore loudly (louder than talking or can be heard Do you often feel tired/ fatigued/ sleepy during daytime? Has anyone observed you stop breathing during sleep? STOP Results Positive 02/27/25 15:09 QUESTION #5 FULL TEXT : Do you snore loudly (louder than talking or can be heard through closed doors)? 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 Specify any problems Hx of Preganancy in last 3 N/A 02/27/25 15:09 Months Nurse Filling Out Transfusion NBUCHER 02/27/25 15:09 & Questions: Date: 02/27/25 02/27/25 15:09 Time: 15:10 02/27/25 15:09 Patient unable to answer at this time (ie. confused, unrespo /Reproduction History /Reproductive History - casting machine operator helper: /Reproductive Hx- casting machine operator helper Hx Now No 02/27/25 15:09 Gestational Age (in weeks): EDC: Hx Hx Para Hx Section SAB No 02/27/25 15:09 Active Medications Active Medications: Current Medications Generic Name Dose Route Start Last Admin Trade Name Tinoq PRN Reason Stop Dose Admin Clindamycin Phosphate 900 mg in 50 mls @ 75 mls/hr 03/13/25 07:30 Cleocin IV 03/13/25 08:09 INTRAOP ONE Lactated Ringer's 1,000 mls @ 15 mls/hr 03/13/25 06:00 03/13/25 06:43 IV 15 mls/hr .Q48H RADHA Administration PFSH Medical History Post-menopausal Frequent UTI Diabetes Thyroid disease GERD (gastroesophageal reflux disease) Sleep apnea History of neuroma Mid back pain on right side Lumbar strain Thoracic myofascial strain MCL sprain of left knee Tear of lateral meniscus of left knee Tear of medial meniscus of left knee Left knee pain History of ganglion cyst Wears glasses Anxiety History of steroid therapy Arthritis Bladder disease Fatty liver Back pain Injury of back Syncope History of ulceration Former smoker CPAP (continuous positive airway pressure) dependence History of edema Hypothyroidism Depression Hx of gastroesophageal reflux (GERD) Home Medications ?Medication ?Instructions ?Recorded ?Last Taken ?Type aripiprazole 30 mg tablet 20 mg PO QHS 08/27/16 03/12/25 History bupropion HCl 200 mg tablet,12 hr 200 mg PO DAILY 08/27/16 03/12/25 History sustained-release citalopram 20 mg tablet 40 mg PO DAILY 10/02/16 03/12/25 History pantoprazole 40 mg tablet,delayed 40 mg PO QHS 11/08/21 Unknown History release levothyroxine 150 mcg tablet 150 mcg PO DAILY 08/16/24 Unknown History (Synthroid) sodium, calcium, magnesium, 1.8 g PO BID SLEEP AIDE 08/16/24 Unknown History potassium oxybates 0.5 gram/mL oral soln (Xywav) Gemtesa 75 mg tablet (vibegron) 75 mg PO DAILY #90 tabs 01/10/25 Unknown Rx cranberry 500 mg capsule 500 mg PO DAILY 02/27/25 03/12/25 History d-mannose 500 mg capsule (AZO 500 mg PO DAILY 02/27/25 03/12/25 History D-Mannose) dextroamphetamine-amphetamine 20 1 tab PO TID 02/27/25 Unknown History mg tablet famotidine 20 mg tablet 20 mg PO QHS 02/27/25 Unknown History metformin 500 mg tablet,extended 500 mg PO DAILY 02/27/25 Unknown History release 24 hr modafinil 200 mg tablet 200 mg PO BID 02/27/25 Unknown History multivitamin (Daily Multi-Vitamin 1 tab PO DAILY 02/27/25 03/11/25 History tablet) sucralfate 1 gram tablet 1 g PO 4X/DAY PRN GERD 02/27/25 03/05/25 History Allergy/AdvReac Type Severity Reaction Status Date / Time cefaclor (From Ceclor) Allergy Anaphylaxis Verified 03/13/25 06:22 Cephalosporins Allergy Anaphylaxis Verified 03/13/25 06:22 ciprofloxacin (From Cipro) Allergy Anaphylaxis Verified 03/13/25 06:22 Penicillins (PCN) Allergy Hives Verified 03/13/25 06:22 Sulfa (Sulfonamide Allergy Anaphylaxis Verified 03/13/25 06:22 Antibiotics) sulfamethoxazole (From Allergy Hives Verified 03/13/25 06:22 Bactrim) trimethoprim (From Bactrim) Allergy Hives Verified 03/13/25 06:22 venlafaxine (From Effexor) AdvReac BRUISING Verified 03/13/25 06:22 Surgical History History of bilateral carpal tunnel release H/O cystoscopy Hx of bladder repair surgery History of hysteroscopy Hx of bilateral breast reduction surgery Hx of breast biopsy Social History household members: none Smoking Status: Former smoker alcohol intake: never substance use type: does not use Review of Systems (Anesthesia) ROS Narrative System reviewed and no additional complaints, except as documented.
--- NOTE | 2025-03-13 07:21 | HP.PCM_ITS ---
History and Physical Date of Admission: 03/13/25 [facility] [address] [place] [address] OFFICE VISIT Date of Service: 12/27/24 MR#: [id number] Acct: [id number] Name: CRISTINA SPRING Rep #: [id number] : 1970 Provider: Dr. Gaston Redman DO Age/Sex: 54/F [place] [facility] [place] [facility] [place]: Signed Intake Vital Signs 11/11/2511:58 12/20/2514:33 Height 5 ft 6 in 5 ft 6 in Weight: 247 lb BMI 39.9 Intake Visit Reasons: LEFT KNEE Chief Complaint: Left Knee Follow-Up Accompanied by: Self Is patient in pain?: Yes Allergies cefaclor (From Ceclor) Allergy (Verified 12/27/24 08:04) Anaphylaxis Cephalosporins Allergy (Verified 12/27/24 08:04) Anaphylaxis ciprofloxacin (From Cipro) Allergy (Verified 12/27/24 08:04) Anaphylaxis Penicillins (PCN) Allergy (Verified 12/27/24 08:22) Hives Sulfa (Sulfonamide Antibiotics) Allergy (Verified 12/27/24 08:04) Anaphylaxis sulfamethoxazole (From Bactrim) Allergy (Verified 12/27/24 08:04) Hives trimethoprim (From Bactrim) Allergy (Verified 12/27/24 08:04) Hives venlafaxine (From Effexor) Adverse Reaction (Verified 12/27/24 08:04) BRUISING Medications ?Medication ?Instructions ?Recorded ?Confirmed ?Type aripiprazole 30 mg tablet 20 mg PO QHS 08/27/16 12/27/24 History bupropion HCl 200 mg tablet,12 hr 200 mg PO DAILY 08/27/16 12/27/24 Histor y sustained-release citalopram 20 mg tablet 40 mg PO DAILY 10/02/16 12/27/24 History estradiol 10 mcg vaginal tablet 10 mcg vaginal PRN PRN check 11/08/21 History pantoprazole 40 mg tablet,delayed 40 mg PO QHS 11/08/21 12/27/24 History release vibegron 75 mg tablet (Gemtesa) 75 mg PO DAILY 10/08/22 12/27/24 History levothyroxine 150 mcg tablet mcg PO DAILY 08/16/24 12/27/24 History (Synthroid) sodium, calcium, magnesium, 1.8 g PO BID 08/16/24 12/27/24 History potassium oxybates 0.5 gram/mL oral soln (Xywav) dextroamphetamine-amphetamine 15 1 tab PO BID 11/10/24 12/27/24 History mg tablet dextroamphetamine-amphetamine ER 1 cap PO QDAY 11/10/24 12/27/24 History 30 mg 24hr capsule,extend release PFSH Medical History Mid back pain on right side Lumbar strain Thoracic myofascial strain MCL sprain of left knee Tear of lateral meniscus of left knee Tear of medial meniscus of left knee Left knee pain History of ganglion cyst Wears glasses Anxiety History of steroid therapy Arthritis Bladder disease Fatty liver Back pain Injury of back Syncope History of ulceration Former smoker CPAP (continuous positive airway pressure) dependence History of edema Hypothyroidism Depression Hx of gastroesophageal reflux (GERD) Surgical History H/O cystoscopy Hx of bladder repair surgery History of hysteroscopy Hx of bilateral breast reduction surgery Hx of breast biopsy Social History household members: none Smoking Status: Former smoker alcohol intake: never substance use type: does not use HPI LEFT KNEE Details: This documentation accurately reflects the service provided and the decisions made by me, Dr. Gaston Redman, DO 12/27/24 0744. Part of today?s visit was documented by Esperanza Kwon ATC, acting as scribe. CRISTINA SPRING is a 54 year old F here today for left knee pain. Patient was seeing Amina for the left knee but it continues to bother her. She continues to wear the brace and states it feels better in the brace after she reinjured it a couple weeks ago. She states it feels more stable wearing the brace. She states since she reinjured the knee it does feel a little bit better. She states it depends on the day but most of the pain is anterior medial and under the patella. She states it feels like she is squishing something when pressing on the knee under the patella. She states she will get pain posteriorly or laterally it just depends on the day. She does take Diclofenac and Tylenol Arthritis. She states the diclofenac doesn't help with her pain but the tylenol does. Patient states the knee started bothering her in mid-. She was cooking and had the foot planted and she twisted and she had pain immediately. She was on crutches for a while. She got off of crutches, wore a brace and then she reinjured. She is unsure how she reinjured it but she just aggravated it. She did try a steroid injection. She is currently in physical therapy and has been going for about 8 weeks. She has been applying ice to the knee pretty regularly. She is getting popping, clicking in the knee and it is bothersome. She does have some instability in the knee occasionally. She does not have confidence in the knee and afraid it will give out when getting out of the shower or ambulating stairs. She did have MRI in years past demonstrating meniscus tears as well but did not have any treatment on it she does not recall this unfortunately I am not sure why. appointment canceled 12/18/2024 12/11/2024 visit with Amina Jenkins:left knee follow-up. Patient continues to wear the brace. She states the knee was doing better but she tweaked it about 2 weeks ago and another time about a week ago and now it is aggravated and bothering her a little more. She continues with physical therapy and they advised her to start wearing the brace again so she started with that. She describes the pain over the medial aspect of the knee and under the patella. She has been taking Tylenol and she has a prescription of Meloxicam but it doesn't help with the pain at all. The Tylenol seems to do better. experience symptom aggravation 12/07/24 in kitchen, prior week tweaked with playing with child outdoors. Unable to explain mechanisms of injury, patient states symptoms are aggravated with twisting motion and and increased activity. Stability with use of hinged knee brace. Completed PT, overall improvement 75% prior to tweaking 2 weeks ago. Plan:Continue oral diclofenac 50 mg at 2-3 times a day with food on as needed basis for pain, stiffness and/or inflammation and OTC Tylenol per package directions Frequent elevation and ice. May continue with hinged knee brace for weightbearing or aggravating activity, off with rest and sleep. Continue home exercises as tolerated. Case was collaborated Dr. Redman on date of visit r egarding possibility of viscosupplementation versus diagnostic arthroscopy. At this time, patient to follow-up with Dr. Redman for full evaluation, MRI review and treatment options. 11/10/2024 visit with Amina Jenkins:here today for Left knee MRI results. She has been doing 2 weeks of physical therapy. Patient has noticed improvement. Taking oral Diclofenac, is helping. Approximately 2 weeks into PT and feels symptoms are improving. Patient did have cortisone injection approximately 3 months ago which did result in decrease of swelling and improvement of symptoms. Symptoms are currently aggravated with certain motions including twisting and step use. Some sensation of giveaway, no falls or actual giveaway has occurred. Plan:Continue oral diclofenac 50 mg at 2-3 times a day with food on as needed basis for pain, stiffness and/or inflammation. May attempt to wean off routine use after cortisone injection takes effect. Frequent elevation and ice. May continue with hinged knee brace for weightbearing activity, off with rest and sleep. Continue with PT and home exercises . Patient tolerated today's cortisone injection well with no adverse effects and positive lidocaine suppression at end of visit. Plan for follow-up here in approximately 4 to 6 weeks, sooner for changes or concerns. 10/02/2024 visit with Amina Jenkins: here today for left knee pain. Patient states this happened Wednesday09/30/24 and she was standing and was in a hurry to do something and she turned and her left foot stayed planted. She denies hearing or feeling a pop in the knee. She describes the pain mostly on the medial aspect of the knee and she has pain up the hamstring. She denies any numbness/tingling. She as an antalgic gait. She states she has noticed the knee has given out from pain but not from instability. She states she has injured this knee in the past. She has been taking Advil for the pain. She has noticed swelling in the knee. significant aggravation of prior knee symptoms and swelling. Symptoms are aggravated with attempts at weightbearing, fully extending at the knee, flexion greater than 90 degrees. Reports visible swelling and pain with activity. Has attempted Advil with minimal symptom improvement, taking a as needed basis. Patient has frequently used ice with some short-term pain relief. Positive sensation of instability and mechanical symptoms with attempt at rotation type movements at the knee. Plan:Resume previously prescribed oral diclofenac 50 mg at 2-3 times a day with food for the next 7 days, then may decrease to as needed basis. Frequent elevation and ice To be fitted in hinged knee brace for weightbearing activity, discussed use of supportive shoes with attempted ambulation. Crutches and weightbearing as tolerated over the next several days until decrease of swelling MRI requested follow-up after MRI for result review and treatment plan; ideal for MRI imaging within the next couple of weeks Work note provided for tomorrow, may repeat return to work on next scheduled shift in October with recommendation to wear hinged knee brace and weightbearing as tolerated. Encouraged to avoid twisting, rotation, frequent bending which she states she can do in her job description. 09/27/2024 visit with Amina Jenkins: She feels that her left knee is really stiff. Fells like there is a tight rubber band mostly behind the knee. When she goes down the steps she feels a little worried that it's going to give out. Patient has a little stiffness in the right knee, but is worried more about the left knee. status post cortisone injections approximately 6 weeks ago. Reports good improvement of symptoms: left knee 80% improved, R knee > 80% improved. Does experience tightness to the posterior left knee, is taking Tylenol arthritis on as needed basis which does seem to help. Overall has resumed most normal activities since last visit. No locking, catching or giving way, positive concerned when descending steps that there could be left knee instability however has not experienced any. 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 Typically wears sandals or flip-flops for footwear. Plan: We reviewed conservative measures of OA symptom control. Patient to continue to take Tylenol per package directions, diclofenac gel up to 4 times a day. Discussed benefits of wearing supportive footwear such as tying up tennis shoes or stability shoe for weightbearing activity and increased ambulation. Discussed benefits of PT for eval and treat for strengthening. 08/17/2024 visit with Amina Jenkins:f/u after venous doppler study. Patient doppler did come back negative for a DVT so patient would like to proceed with bilateral knee injections. Typically the left knee is more symptomatic. Patient does have braces, however she has not been wearing those recently. Positive mechanical symptoms of the right knee including catching and rubbing noted. Wishes to pursue bilateral cortisone injections. 08/16/2024 visit with Amina Jenkins: bilateral knee pain. left knee pain is not as bad at 3/10. has not had a right knee injection for a couple years. She rates her right knee pain is severe 7/10 and worsens with weight bearing. She reports hyper-extension of her bilateral knees about 8 years ago. She also fell a few years ago where she sprained her ankle,hurt her right hip and bilateral knees. She was told she has a bucket handle tears in her bilateral knees. She states her right knee feels unstable and feels like it will give out. acute right knee pain and swelling over the last few days. Denies any known injuries or falls . Left knee pain last cortisone injection approximately 7 months ago with good effect, no injection to the right knee. Typically the left knee is more symptomatic. Patient does have braces, however she has not been wearing those recently. Positive mechanical symptoms of the right knee including catching and rubbing noted. Right lower leg is also swollen, denies any recent history of travel, positive family history of sibling and parent with DVTs in the past, negative history of DVT for this patient. Plan:Patient scheduled follow-up appointment for tomorrow with anticipated cortisone injections for symptom control as long as duplex ultrasound negative. Pt in agreement with plan of care. Duplex ultrasound negative for DVT. Ortho Exam General General: Yes no acute distress and Yes well groomed Neurologic: Yes alert and Yes oriented x3 Psychologic: Yes reasonable and appropriate Right Knee Patella Translation: 1 Left Knee Skin/Wound: Yes CDI, No ecchymosis, No erythema and No swelling Knee ROM: Yes ROM-Extension -20 to 0 and No ROM-Flexion 0-140 (110) Examination: Yes med jt line tenderness, No Lat jt line tenderness, No Crepitus, Yes Cha's Test, Yes Madsen's, No TTP Pes Anserine and No Illiotibial band tenderness Stability: NML: Anterior Drawer, NML: Posterior Drawer, NML: Valgus 0, NML: Valgus 30, NML: Varus 0 and NML: Varus 30 Patella Translation: 1 Patella Grind: Yes KNEE: no joint effusion + patellar grind - patellar apprehension - patellar instability FLEX 110 Constitutional: Well-developed; well-nourished; in no acute distress Eyes: No jaundice ENT: Nares patent; no obvious deformity Cardiovascular: No cyanosis; clubbing; or edema Lymphatic: No adenopathy in area of examination Skin: No rashes or lesions in the area of examination and intact Neurologic: Alert and oriented x 3 Psychiatric: Mood and affect appropriate Supplemental Info 11/06/2024 MRI left knee: Punctate focus of edema present in the subchondral medial tibial plateau. Mild edema surrounding the MCL no tear. Complex tear anterior horn of the lateral meniscus with adjacent parameniscal cyst. Radial tear of the posterior horn medial meniscus. No full-thickness cartilage loss Coding Level of Care Code Off vis,est,level 4 Diagnoses Old complex tear of lateral meniscus of left knee M23.201 Tear current or old: old Meniscus tear of knee type: complex Other old tear of medial meniscus of left knee M23.204 Tear current or old: old Meniscus tear of knee type: other type Assessment and Plan Assessment and Plan (1) Tear of lateral meniscus of left knee: Status: Acute Qualifiers: Tear current or old: old Meniscus tear of knee type: complex Qualified Code(s): M23.201 - Derangement of unspecified lateral meniscus due to old tear or injury, left knee (2) Tear of medial meniscus of left knee: Status: Acute Qualifiers: Tear current or old: old Meniscus tear of knee type: other type Qualified Code(s): M23.204 - Derangement of unspecified medial meniscus due to old tear or injury, left knee Plan 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 She has failed conservative treatment continues to have painful mechanical symptoms. Does not have confidence in the knee. Due to trying conservative treatment without having much benefit and this being an ongoing issue with mechanical symptoms and not much confidence in the knee, I would recommend a knee arthroscopy partial medial partial lateral meniscectomy. The arthritis in the knee does not look that bad so she should do pretty well with the surgery. Explained the pros, cons, risks and benefits of the surgical procedure and she should be able to walk right away following surgery. She should try to at least take off 2-3 weeks of work but if she does have to go back early she should be able to keep the leg elevated to keep down the swelling. Recommend she save her physical therapy visits as she has already been going for 8 weeks without any relief. Patient is requesting surgery on March 13. Follow up after surgery for post-op appointment or sooner if pain, swelling, numbness or associated symptoms, or concerns develop. All questions answered. Patient in agreement of plan. 12/27/24 0952 <Electronically signed by Gaston Redman DO> Date Gaston Redman DO I have examined the patient and the H&P has been reviewed. There are no clinical changes since date of exam.
[2025-03-13] MEDS: Midazolam 2 MG/2 ML Syringe IV (07:32)
[2025-03-13] MEDS: Lidocaine 1% (5 ml sdv) 5 ML Vial IV (07:38)
[2025-03-13] MEDS: Epinephrine (1 mg/ml) 1 MG/ML VIAL (07:50)
[2025-03-13] MEDS: Bupiv/Epi 0.25% 30 ML Vial (08:10)
--- NOTE | 2025-03-13 08:14 | PCM.OPRPT ---
Operative Report (Standard) Operative Information Date of Procedure: 03/13/25 Pre-Operative Diagnosis: Left knee medial lateral meniscus tear Post-Operative Diagnosis: Same Surgery/Procedure Performed: Left knee arthroscopy partial medial partial lateral meniscectomy public health sanitarian: Yes Computer Customer Support Specialist: Alan Trevino Tasks completed by parts room assistant: Opening & closing Type of Anesthesia: General RN Documented Start/Stop Times: Operation Date: 03/13/25 07:30 Case Time Into Pre-Op 03/13/25 05:58 Out of Pre-Op 03/13/25 07:27 Anesthesia Start 03/13/25 07:30 Into Room 03/13/25 07:30 Procedure Start 03/13/25 07:53 Procedure Start Time: 07:53 Procedure Stop Time: 08:13 Select all DRAINS/GRAFTS/IMPLANTS that apply: None Estimated Blood Loss: 0 Specimen collected: No Description of surgery: Preop diagnosis: Left knee radial tear medial meniscus posterior horn anterior horn lateral meniscus tear DJD Postoperative diagnosis: Left knee small radial tear posterior horn medial meniscus small anterior horn lateral meniscus tear grade 3 small area chondromalacia measuring 5 x 7 medial femoral condyle grade 2 softening and fibrillation patella, small area of grade 3 posterior medial tibial plateau. Procedure: Left knee arthroscopic partial medial partial lateral meniscectomy Anesthesia: General Estimated blood loss: 5 mL Tourniquet time: 20 minutes 300 mmHg Complications: none Indication for procedure: 54-year-old female patient who has had ongoing knee pain despite conservative treatment did have MRI evidence of medial and lateral meniscus tear the patient did wish to proceed with an elective arthroscopic surgery to attempt to alleviate the symptoms. Risk benefits and alternatives of the procedure were reviewed including risk of bleeding infection nerve artery tissue damage need for further surgery continued pain and expected postoperative course. Procedure: The patient was met in the preoperative holding area. The operative extremity was identified by both patient and physician and family and marked. Patient was brought back to the operating room on a wheeled cart and transferred to the operating table in the supine position. Anesthesia was started. A well-padded tourniquet was placed on the operative extremity. A lower extremity leg jones was secured to the operative extremity. The contralateral extremity was well-padded and the end of the bed was flexed to 90 degrees. The patient was prepped and draped in the usual sterile fashion. A timeout was called to ensure the proper patient, procedure, and extremity were being contemplated. 0.5% Marcaine with epinephrine was injected into the planned incisional areas under the skin only. An Esmarch was used to exsanguinate the extremity and the tourniquet was inflated. An 11 blade scalpel was used to make a stab incision in the anterior lateral portal. The arthroscope was inserted into the intercondylar notch and inflow and outflow tubes were attached. Arthroscopic visualization began. The medial compartment was entered. An 18-gauge spinal needle was used to establish the placement for anterior medial portal. An 11 blade scalpel was used to make a stab incision. Blunt probe was inserted followed by a meniscal probe. There is a small radial tear in the posterior horn medial meniscus as well as grade 3 cartilage wear and a small area of the medial femoral condyle measuring 5 x 7 mm arthroscopic shaver was used to perform a partial medial meniscectomy, the ACL was found to be intact. The lateral compartment was entered there was small fraying radial tearing of the anterior horn lateral meniscus partial meniscectomy was performed with a shaver The arthroscope was switched to the medial portal to complete the procedure. The medial and lateral gutters were inspected and were free of loose bodies. The patellofemoral joint was inspected grade 2 softening and fibrillation of the patella. There was good patellar tracking. The knee was thoroughly irrigated and drained. An intra-articular injection with 5 cc 0.5% Marcaine plain and 40 mg of Depo-Medrol was injected intra-articularly. The arthroscope was removed the portals were closed with 3-0 nylon arthroscopic stitches. Followed by Xeroform 4 x 4's ABDs web roll and an Shant wrap. The tourniquet was let down and the drapes were removed. All counts were correct. The patient was brought back to the PACU in stable condition. Surgical Findings: As above Complications Complications: No
[2025-03-13] MEDS: fentaNYL 100 MCG/2 ML Ampul 200 MCG IV (08:15)
--- NOTE | 2025-03-13 08:19 | EX.PCM.DISCH ---
Discharge Instructions Diet Discharge Diet: No restrictions Dressing / Incision Call your doctor if you observe: Shortness of breath and Chest pain Additional Dressing/Incision Instructions:: Ice and elevate next 72 hours .keep dressing on clean and dry for 48 hours then may remove begin showering daily but do not submerge in tub or pool. After shower may apply Band-Aids . Encourage knee range of motion weightbearing as tolerated, use crutches until confident in knee then may discontinue. No strenuous activity. When not ambulating keep iced and elevated next 72 hours. Do not mix pain medication with recreational drugs or alcohol only take as prescribed can be addictive and abusive, call with any questions or concerns. Follow Up Care Please Follow Up With: Gaston Redman DO When: 2 weeks Test Results: Test results from this visit will be discussed in further detail at your follow-up appointment, if applicable. Discharge Plan Admission Primary Reason for Your Visit: Left knee arthroscopy Attending Provider: Gaston Redman Primary Care Provider: Quynh Sneed PRODUCT APPLICATIONS ENGINEER Instructions Print Language: St Helen[place] Discharge Orders/Prescriptions Prescriptions: New hydrocodone-acetaminophen 5-325 mg tablet 1 tab PO Q4H PRN (Reason: pain) 4 Days Qty: 15 0RF No Action pantoprazole 40 mg tablet,delayed release (DR/EC) 40 mg PO QHS Patient Comments: take 1 tablet by mouth once daily levothyroxine [Synthroid] 150 mcg tablet 150 mcg PO DAILY Xywav 0.5 gram/mL solution 1.8 g PO BID Rx Instructions: administer the first dose at bedtime and the second dose 2.5-4 hours later bupropion HCl 200 MG tablet 200 mg PO DAILY aripiprazole 30 MG tablet 20 mg PO QHS citalopram 20 MG tablet 40 mg PO DAILY dextroamphetamine-amphetamine 20 mg tablet 1 tab PO TID famotidine 20 mg tablet 20 mg PO QHS multivitamin [Daily Multi-Vitamin] Tablet 1 tab PO DAILY cranberry 500 mg capsule 500 mg PO DAILY Rx Instructions: administer with a meal metformin 500 mg tablet extended release 24 hr 500 mg PO DAILY sucralfate 1 gram tablet 1 g PO 4X/DAY PRN (Reason: GERD) modafinil 200 mg tablet 200 mg PO BID AZO D-Mannose 500 mg capsule 500 mg PO DAILY Gemtesa 75 mg tablet 75 mg PO DAILY Qty: 90 3RF Referrals / Follow Up: Quynh Sneed PRODUCT APPLICATIONS ENGINEER, PRODUCT APPLICATIONS ENGINEER-C [Primary Care Provider, Medical] Disposition Disposition (needs filled in before D/C Order can be placed): Home, Self Care
--- NOTE | 2025-03-13 09:13 | PCM.POST.ANE ---
Anesthesia: Postop Eval I Current Vital Signs Temperature: 97.8 F Pulse Rate: 98 Blood Pressure: 119/67 Respiratory Rate: 14 Pulse Ox: 94 Oxygen Delivery Method: Room Air Assessment Airway patent: Yes Spontaneous unlabored respirations: Yes Mental status: Awake and Calm nausea: No Vomiting: No Anesthesia Complication: No Fluid Hydration Crystalloid volume administer (ml): 800 Total IV fluid infused: 800 Progress Note Anesthesia document: Postop Eval 1 completed: Yes
[2025-03-13] MEDS: HYDROcodone Bitartrate/Apap 5/325 Tablet PO (09:28)
--- NOTE | 2025-03-13 11:45 | POSTOPAN2_ITS ---
Anesthesia Postop Eval I Sum Postop Eval Completion status Anesthesia document: Postop Eval 1 completed: Yes Anesthesia Postop Eval I Summary Anesthesia Postop Eval I Summary: Anesthesia Postop Eval I: Assessment Summary Airway patent Yes 03/13/25 09:14 [email or web address] Spontaneous unlabored Yes 03/13/25 09:14 [email or web address] [email or web address] respirations Mental status Awake,Calm 03/13/25 09:14 [email or web address] nausea No 03/13/25 09:14 [email or web address] [email or web address] Vomiting No 03/13/25 09:14 [email or web address] Anesthesia Postop Eval I: Fluid Summary Crystalloid volume administer 800 03/13/25 09:14 [email or web address] (ml) Colloids volume administered ( ml) Blood Product volume administered (ml) Total IV fluid infused 800 03/13/25 09:14 [email or web address] Anesthesia Postop Eval I: Summary Notes Anesthesia Complication No 03/13/25 09:14 [email or web address] Anesthesia Complication Comment: Post-operative progress note Anesthesia: Postop Eval II Evaluation Mental status: Awake Pain Level: 0 nausea: No Vomiting: No
--- NOTE | 2025-03-13 11:45 | PCM.POSTANE2 ---
Anesthesia Postop Eval I Sum Postop Eval Completion status Anesthesia document: Postop Eval 1 completed: Yes Anesthesia Postop Eval I Summary Anesthesia Postop Eval I Summary: Anesthesia Postop Eval I: Assessment Summary Airway patent Yes 03/13/25 09:14 [email or web address] [email or web address] Spontaneous unlabored Yes 03/13/25 09:14 [email or web address] [email or web address] respirations Mental status Awake,Calm 03/13/25 09:14 ENGINEER [email or web address] nausea No 03/13/25 09:14 ENGINEER [email or web address] Vomiting No 03/13/25 09:14 ENGINEER [email or web address] Anesthesia Postop Eval I: Fluid Summary Crystalloid volume administer 800 03/13/25 09:14 [email or web address] [email or web address] (ml) Colloids volume administered ( ml) Blood Product volume administered (ml) Total IV fluid infused 800 03/13/25 09:14 [email or web address] [email or web address] Anesthesia Postop Eval I: Summary Notes Anesthesia Complication No 03/13/25 09:14 [email or web address] [email or web address] Anesthesia Complication Comment: Post-operative progress note Anesthesia: Postop Eval II Evaluation Mental status: Awake Pain Level: 0 nausea: No Vomiting: No
== END 2025-03-13 10:15 | disposition home or self-care (01) ==
LOC: SDC 05:53 → AC 05:55
PROVIDERS: PCP Registered Nurse; Referring Provider Orthopaedic Surgery; Visit Provider Orthopaedic Surgery
PROC: (CPT 29870; principal; 2025-03-13 07:10)
DX: M23.201 Derangement of unspecified lateral meniscus due to old tear or injury, left knee (principal); M23.242 Derangement of anterior horn of lateral meniscus due to old tear or injury, left knee; M23.252 Derangement of posterior horn of lateral meniscus due to old tear or injury, left knee; K21.9 Gastro-esophageal reflux disease without esophagitis; E03.9 Hypothyroidism, unspecified; F32.A Depression, unspecified; Z79.899 Other long term (current) drug therapy; Z79.84 Long term (current) use of oral hypoglycemic drugs; Z87.891 Personal history of nicotine dependence
CPT/HCPCS: 29880; 01400; 82962; J2405

== ENCOUNTER → 2025-03-26 | Outpatient (CLI) | payer OTHER, SELFPAY ==
--- NOTE | 2025-03-26 10:37 | VDLE_ITS ---
Reason For Study Reason For Study: Swelling LLE RIGHT LEFT CFV is compressible, spontaneous, phasic, competent GSV is normal. and demonstrates normal augmentation. CFV is compressible, spontaneous, phasic, competent, Procedure and demonstrates normal augmentation. This is a venous duplex using B-mode, color flow and FV is compressible, spontaneous, phasic, competent spectral Doppler. and demonstrates normal augmentation. Exam performed in department. POP V is compressible, spontaneous, phasic, competent A preliminary report was called and/or faxed to and demonstrates normal augmentation. Feroz. T/P Trunk is compressible. PTV is compressible. LT PerV is compressible. Hypoechoic, non vascular structure noted Lt Pop Fossa measuring 2.83cm x 0.93cm. VL/Venous Duplex US, Unilateral Interpretation Summary Deep veins of the left lower extremity are patent and compressible segmentally. There is no evidence of left lower extremity deep vein thrombosis. Valvular competence appears intact within the p roximal deep venous system on the left . The left great saphenous vein appears patent and compressible segmentally. A no n-vascular, hypoechoic structure is noted in the left popliteal space, measuring 2.83 cm x 0.93 cm. This probably represe nts a popliteal cyst. Clinical correlation is advised. The right common femoral vein is patent and compressibl e . Ordering Physician: Gaston Redman Referring Physician: Quynh Sneed Performed By: Samantha High, GLADYS, RVT
== END | disposition home or self-care (01) ==
LOC: CVS 10:32
PROVIDERS: PCP Registered Nurse; Referring Provider Orthopaedic Surgery; Visit Provider Orthopaedic Surgery
DX: I74.3 Embolism and thrombosis of arteries of the lower extremities (principal); I70.92 Chronic total occlusion of artery of the extremities
CPT/HCPCS: 93971